=== PATIENT | male | born 1930 | race Caucasian/White ===

== ENCOUNTER 2018-01-24 11:20 | Emergency (ER) | payer SELFPAY ==
[~2018-01-24] VITALS: Ht 182.9 cm; Wt 106.8 kg
[2018-01-24 11:24] VITALS: Ht 182.9 cm; Wt 106.8 kg
[2018-01-24] MEDS ORDERED: LASIX20 MG PO (13:12)
[2018-01-24] MEDS ORDERED: Walker (13:13)
[2018-01-24 15:23] VITALS: BP 152/84
== END 2018-01-24 18:15 | disposition home or self-care (01) ==
LOC: D.ER 11:20
DX: M54.5 Low back pain (principal); R60.9 Edema, unspecified; R53.1 Weakness; W18.30XA Fall on same level, unspecified, initial encounter; Y93.89 Activity, other specified; Y92.019 Unspecified place in single-family (private) house as the place of occurrence of the external cause; F17.200 Nicotine dependence, unspecified, uncomplicated

== ENCOUNTER 2018-03-22 00:07 | Emergency (ER) | payer SELFPAY ==
[~2018-03-22] VITALS: Ht 182.9 cm; Wt 106.8 kg
[~2018-03-22 00:07] MED LIST: LASIX20 MG PO; Walker
[2018-03-22 00:09] VITALS: Ht 182.9 cm; Wt 106.8 kg
[2018-03-22 00:44] LABS: HEMATOCRIT 37.7 % (42.0-54.0); HEMOGLOBIN 12.8 g/dL (13.5-17.5); MCH 30.8 pg (26.0-34.0); MCV 90.6 fL (80.0-100.0); MEAN PLATELET VOLUME 9.2 fL (7.4-10.4); PLATELET COUNT 135 10x3/uL (130-400); RBC 4.16 10x6/uL (4.20-6.10); RDW 13.4 % (11.5-14.5); WBC 22.2 10x3/uL (4.8-10.8)
[2018-03-22 00:50] LABS: APTT 30.8 SECONDS (22.8-39.4); INR 1.56 (0.85-1.17); PROTIME 18.1 SECONDS (11.6-15.0)
[2018-03-22 00:51] LABS: ALKALINE PHOSPHATASE 73 U/L (46-116); ALT (SGPT) 33 U/L (10-68); BILIRUBIN - TOTAL 0.85 mg/dL (0.2-1.3); CALC OSMOLALITY 290 mosm/kg (275-300); CALCIUM 8.4 mg/dL (8.5-10.1); CARBON DIOXIDE 28.6 mmol/L (21.0-32.0); CHLORIDE - SERUM 103 mmol/L (98-107); CREATININE - SERUM 1.6 mg/dL (0.6-1.3); GLUCOSE 110 mg/dL (74-106); POTASSIUM - SERUM 4.1 mmol/L (3.5-5.1); PROTEIN - SERUM 7.3 g/dL (6.4-8.2); SODIUM 143 mmol/L (136-145); UREA NITROGEN 27 mg/dL (7-18); eGFR NON AFRICAN AMERICAN 44 mL/min (90-120)
[2018-03-22 01:09] LABS: CKMB 10.3 U/L (0.0-3.6); CREATINE KINASE 1528 UL (21-232); TROPONIN-I 0.044 ng/mL (0.000-0.060)
[2018-03-22 01:16] LABS: EOSINOPHILS 1 % (0-7); LYMPHOCYTES 4 % (15-50); MONOCYTES 3 % (2-11); NEUTROPHILS 88 % (40-80); PLATELET ESTIMATE NORMAL
[2018-03-22 02:16] LABS: APPEARANCE HAZY (CLEAR); COLOR YELLOW (YELLOW); NITRITE NEGATIVE (NEGATIVE); SPECIFIC GRAVITY 1.015 (1.005-1.020)
[2018-03-22 02:17] LABS: BACTERIA NONE SEEN /hpf (NONE SEEN); BILIRUBIN NEGATIVE (NEGATIVE); EPITHELIAL CELLS NSEEN /hpf (0-5); GLUCOSE NEGATIVE (NEGATIVE); KETONE NEGATIVE (NEGATIVE); PROTEIN TRACE mg/dL (NEGATIVE); UROBILINOGEN NORMAL (NORMAL); WHITE CELLS - URINE RARE /hpf (0-5)
[2018-03-22 05:30] VITALS: BP 128/70
== END 2018-03-22 05:30 | disposition short-term general hospital (02) ==
LOC: D.ER 00:07
PROVIDERS: Family Medicine
DX: R65.10 Systemic inflammatory response syndrome (SIRS) of non-infectious origin without acute organ dysfunction (principal); N17.9 Acute kidney failure, unspecified; L89.302 Pressure ulcer of unspecified buttock, stage 2; E86.0 Dehydration; I45.10 Unspecified right bundle-branch block; R00.0 Tachycardia, unspecified; R53.1 Weakness; R06.00 Dyspnea, unspecified

== ENCOUNTER 2018-07-02 21:08 | Emergency (ER) | payer OTHER ==
[~2018-07-02] VITALS: Ht 182.9 cm; Wt 90.9 kg
[2018-07-02 21:15] VITALS: Ht 182.9 cm; Wt 90.9 kg
[2018-07-02] MEDS ORDERED: OCUFLOX 0.3 % OP5 ML EACH EYE (21:56)
[2018-07-02 22:10] VITALS: BP 137/68
== END 2018-07-02 22:11 | disposition home or self-care (01) ==
LOC: D.ER 21:08
DX: H10.33 Unspecified acute conjunctivitis, bilateral (principal)

== ENCOUNTER 2019-01-31 16:39 | Emergency (ER) | payer OTHER ==
[~2019-01-31] VITALS: Ht 182.9 cm; Wt 86.4 kg
[~2019-01-31 16:39] MED LIST changes: +OCUFLOX 0.3 % OP5 ML EACH EYE
[2019-01-31 16:40] VITALS: Ht 182.9 cm; Wt 86.4 kg
[2019-01-31 16:56] LABS: BASOPHILS 0.3 % (0-2); EOSINOPHILS 1.9 % (0-7); HEMATOCRIT 40.5 % (42.0-54.0); HEMOGLOBIN 14.1 g/dL (13.5-17.5); IMMATURE GRANULOCYTES 0.2 % (0-5); LYMPHOCYTES 15.2 % (15-50); MCH 31.2 pg (26.0-34.0); MCHC 34.8 g/dL (31.0-37.0); MCV 89.6 fL (80.0-100.0); MEAN PLATELET VOLUME 9.8 fL (7.4-10.4); NEUTROPHILS 77.4 % (40-80); PLATELET COUNT 164 10x3/uL (130-400); RBC 4.52 10x6/uL (4.20-6.10); RDW 13.6 % (11.5-14.5); WBC 5.8 10x3/uL (4.8-10.8)
[2019-01-31 17:05] LABS: APTT 28.3 SECONDS (22.8-39.4); INR 1.16 (0.85-1.17); PROTIME 14.2 SECONDS (11.6-15.0)
[2019-01-31 17:14] LABS: ALBUMIN 3.6 g/dL (3.4-5.0); ALKALINE PHOSPHATASE 91 U/L (46-116); ALT (SGPT) 15 U/L (10-68); BILIRUBIN - TOTAL 0.87 mg/dL (0.2-1.3); CALC OSMOLALITY 291 mosm/kg (275-300); CALCIUM 8.7 mg/dL (8.5-10.1); CARBON DIOXIDE 29.7 mmol/L (21.0-32.0); CHLORIDE - SERUM 105 mmol/L (98-107); CREATININE - SERUM 1.1 mg/dL (0.6-1.3); GLUCOSE 129 mg/dL (74-106); POTASSIUM - SERUM 3.7 mmol/L (3.5-5.1); PROTEIN - SERUM 6.8 g/dL (6.4-8.2); SODIUM 144 mmol/L (136-145); UREA NITROGEN 20 mg/dL (7-18); eGFR NON AFRICAN AMERICAN 67 mL/min (90-120)
[2019-01-31 17:29] LABS: CKMB 2.2 U/L (0.0-3.6); CREATINE KINASE 55 UL (21-232); MAGNESIUM - SERUM 1.9 mg/dL (1.8-2.4)
[2019-01-31 17:35] LABS: TROPONIN-I 0.101 ng/mL (0.000-0.060)
[2019-01-31 22:51] LABS: APPEARANCE CLEAR (CLEAR); BILIRUBIN NEGATIVE (NEGATIVE); COLOR YELLOW (YELLOW); GLUCOSE NEGATIVE (NEGATIVE); KETONE NEGATIVE (NEGATIVE); NITRITE NEGATIVE (NEGATIVE); PROTEIN TRACE mg/dL (NEGATIVE); SPECIFIC GRAVITY 1.005 (1.005-1.020); UROBILINOGEN NORMAL (NORMAL)
[2019-02-01 00:30] VITALS: BP 174/74
== END 2019-02-01 00:56 | disposition other institution (70) ==
LOC: D.ER 16:39
PROVIDERS: Family Medicine
DX: R42 Dizziness and giddiness (principal); R74.8 Abnormal levels of other serum enzymes; R53.1 Weakness

== ENCOUNTER 2019-08-15 21:21 | Emergency (ER) | payer OTHER ==
[2019-01-31 16:40] VITALS: Ht 182.9 cm; Wt 90.9 kg
[~2019-08-15] VITALS: Ht 182.9 cm; Wt 90.9 kg
[2019-08-15] MEDS ORDERED: K-TAB10 MEQ PO (21:27)
[2019-08-15] MEDS ORDERED: LASIX40 MG (21:27)
[2019-08-15] MEDS ORDERED: TERAZOSIN HCL2 MG (21:27)
[2019-08-15] MEDS ORDERED: ELIQUIS5 MG PO (21:29)
[2019-08-15 23:34] VITALS: BP 119/65
== END 2019-08-15 23:36 | disposition home or self-care (01) ==
LOC: D.ER 21:21
DX: S00.83XA Contusion of other part of head, initial encounter (principal); Z79.01 Long term (current) use of anticoagulants; W19.XXXA Unspecified fall, initial encounter; Y93.9 Activity, unspecified; Y92.9 Unspecified place or not applicable

== ENCOUNTER 2019-12-01 00:01 | Inpatient (IN) | payer OTHER ==
[2019-12-01] VITALS (9 sets, daily range): BP systolic 103–127; BP diastolic 51–867
[~2019-12-01] VITALS: Ht 182.9 cm; Wt 111.5 kg
[~2019-12-01 00:01] MED LIST changes: +ELIQUIS5 MG PO; +K-TAB10 MEQ PO; +LASIX40 MG; +TERAZOSIN HCL2 MG
--- NOTE | 2019-12-01 00:01 | NUR ---
PT WEARING SOILED PULL UP. INCONTINENT EPISODE OF URINE, PERINEAL CARE AND LINEN CHANGE PROVIDED.
--- NOTE | 2019-12-01 00:20 | NUR ---
PHLEBOTAMIST AT BEDSIDE, BED CULTURES X2 DONE.
[2019-12-01 00:27] LABS: BILIRUBIN NEGATIVE (NEGATIVE); GLUCOSE NEGATIVE (NEGATIVE); KETONE NEGATIVE (NEGATIVE); NITRITE NEGATIVE (NEGATIVE); UROBILINOGEN NORMAL (NORMAL)
[2019-12-01 00:37] LABS: BASOPHILS 0.2 % (0-2); EOSINOPHILS 0.5 % (0-7); HEMATOCRIT 39.9 % (42.0-54.0); HEMOGLOBIN 13.4 g/dL (13.5-17.5); IMMATURE GRANULOCYTES 0.2 % (0-5); LYMPHOCYTES 2.1 % (15-50); MCH 29.8 pg (26.0-34.0); MCHC 33.6 g/dL (31.0-37.0); MCV 88.7 fL (80.0-100.0); PLATELET COUNT 133 10x3/uL (130-400); RDW 13.5 % (11.5-14.5); WBC 9.2 10x3/uL (4.8-10.8)
[2019-12-01 00:42] LABS: APTT 28.3 SECONDS (22.8-39.4); INR 1.17 (0.85-1.17); PROTIME 14.8 SECONDS (11.6-15.0)
[2019-12-01 00:47] LABS: ANION GAP 9.9 mmol/L (8-16); CALCIUM 8.3 mg/dL (8.5-10.1); CARBON DIOXIDE 26.9 mmol/L (21.0-32.0); CREATININE - SERUM 1.9 mg/dL (0.6-1.3); POTASSIUM - SERUM 3.8 mmol/L (3.5-5.1)
[2019-12-01 01:02] LABS: ALBUMIN 3.3 g/dL (3.4-5.0); BILIRUBIN - TOTAL 0.52 mg/dL (0.2-1.3); MAGNESIUM - SERUM 1.9 mg/dL (1.8-2.4); PROTEIN - SERUM 6.8 g/dL (6.4-8.2); THYROID STIMULATING HORMONE 0.81 uIU/mL (0.36-3.74); TROPONIN-I 0.027 ng/mL (0.000-0.060)
--- NOTE | 2019-12-01 03:50 | NUR ---
RADHA AND ASSIST X4 TO MOVE FROM STRETCHER TO BED LOW AND LOCKED PT IS CONFUSED CALL LIGHT GIVEN PT REQUEST A DRINK AN WATER PROVIDED
--- NOTE | 2019-12-01 12:36 | NUR ---
REPORTED NEW LACTIC ACID LEVEL OF 2.[address] CRUZ. REDRAW SCHEDULED FOR FOUR HOURS FROM NOW
--- NOTE | 2019-12-01 13:01 | NUR ---
PATIENT IS LAYING HALF OF THE BED. PATIENT IS A FALL RISK, BED ALARM SET.
[2019-12-01 17:02] LABS: % SATURATION 9 % (15-55); IRON 21 ug/dl (35-150); TOTAL IRON BIND CAPACITY 215 ug/dl (260-445); UNSAT IRON BIND CAPACITY 194 ug/dl (150-375)
--- NOTE | 2019-12-01 19:49 | NUR ---
PT SITTING UP IN CHAIR NO SIGNS OR SYMPTOMS OF DISTRESS NOTED. RESPIRATIONS EVENN AND UNLABORED. PT COMPLAIN OF BEING COLD BUT IS NOT READY TO GO TO BED YET. WARM BLANKET PROVIDED. CALL LIGHT AND OTHER PERSONAL ITEMS WITH IN REACH. WILL CONTINUE TO MONITOR
[2019-12-02] VITALS: BP 122/65
--- NOTE | 2019-12-02 01:25 | NUR ---
PT LYING IN BED RESTING QUIETLY WITH EYES CLOSED. EASILY AWAKEN WITH VOICE STIMULATION. ASSIST PT TO RESTROOM AND BACK TO BED. PT TOLERATED WELL. DENTURE CUP PROVIDED PER PT REQUEST. PT HAS NO COMPLAINTS AF PAIN AT THIS TIME. BED ALARM ON AND ACTIVE. FALL PRECAUTIONS IN PLACE. CALL LIGHT AND OTHER PERSONAL ITEMS WITH IN REACH. PT ENCOURAGED TO CALL FOR HELP WHEN GETTING IN AND OUT OF BED AND NEEDED. BED IS IN ITS LOWEST POSITION. SIDERAILS x2. WILL CONTINUE TO MONITOR.
--- NOTE | 2019-12-02 03:57 | NUR ---
I have reviewed this patient and I concur with the Shift Assessment completed by the Licensed Practical Nurse today this shift.
[2019-12-02 04:00] VITALS: BP 137/72
--- NOTE | 2019-12-02 07:24 | NUR ---
PT RESTING, RR EVEN AND UNLABORED ON 2L NC. NO DISTRESS NOTED. CALL LIGHT WITHIN REACH. BED IN LOWEST POSITION. WILL CONTINUE TO MONIOTR.
--- NOTE | 2019-12-02 07:32 | NUR ---
TECH CAME OUT OF ROOM AND STATED PT STILL HAD A TOURNIQUET ON RIGHT WRIST FROM LABS BEING DRAW. ISSUE ADDRESSED WITH LAB. RIGHT HAND COLOR IS WITHIN NORMAL LIMITS. PULSE 2+ AND EQUAL. CAP REFILL LESS THAN 3 SECONDS. PT STATES HE IS OKAY
[2019-12-02 07:54] LABS: BASOPHILS 0.3 % (0-2); EOSINOPHILS 4.5 % (0-7); HEMATOCRIT 37.1 % (42.0-54.0); HEMOGLOBIN 11.9 g/dL (13.5-17.5); LYMPHOCYTES 8.4 % (15-50); MCH 29.2 pg (26.0-34.0); MCHC 32.1 g/dL (31.0-37.0); MEAN PLATELET VOLUME 9.5 fL (7.4-10.4); MONOCYTES 7.7 % (2-11); NEUTROPHILS 79.1 % (40-80); PLATELET COUNT 108 10x3/uL (130-400); RBC 4.08 10x6/uL (4.20-6.10); WBC 6.9 10x3/uL (4.8-10.8)
[2019-12-02 08:02] LABS: MCV 90.9 fL (80.0-100.0)
[2019-12-02 08:15] LABS: ALBUMIN 2.7 g/dL (3.4-5.0); ANION GAP 9.8 mmol/L (8-16); BILIRUBIN - TOTAL 0.47 mg/dL (0.2-1.3); CALCIUM 7.3 mg/dL (8.5-10.1); MAGNESIUM - SERUM 1.8 mg/dL (1.8-2.4); POTASSIUM - SERUM 3.8 mmol/L (3.5-5.1); PROTEIN - SERUM 5.6 g/dL (6.4-8.2)
[2019-12-02 08:17] LABS: CREATININE - SERUM 1.4 mg/dL (0.6-1.3)
[2019-12-02 08:31] VITALS: BP 157/79
--- NOTE | 2019-12-02 10:44 | NUR ---
I have reviewed this patient and I concur with the Shift Assessment completed by the Licensed Practical Nurse today this shift.
[2019-12-02 12:24] VITALS: BP 157/75
--- NOTE | 2019-12-02 17:20 | NUR ---
Rehab Note- Acute Inpatient Rehab prescreen order received. We currently have no beds avaliable at this time and the patient is also noted only to have VA insurance at this time. Thank you for this referral! Yoselyn Connors RN Clinical Liaison, [facility] Rehab
--- NOTE | 2019-12-02 19:45 | NUR ---
PT AAO X 3, UP IN CHAIR, RESP EVEN AND UNLABORED. NO DISTRESS NOTED, CL IN REACH.
[2019-12-02 20:00] VITALS: BP 182/90
[2019-12-03] VITALS: BP 174/85
[2019-12-03 04:00] VITALS: BP 153/66
[2019-12-03 05:57] LABS: BASOPHILS 0.5 % (0-2); EOSINOPHILS 4.9 % (0-7); HEMATOCRIT 35.9 % (42.0-54.0); HEMOGLOBIN 11.8 g/dL (13.5-17.5); IMMATURE GRANULOCYTES 0.2 % (0-5); MCH 29.7 pg (26.0-34.0); MCHC 32.9 g/dL (31.0-37.0); MCV 90.4 fL (80.0-100.0); MEAN PLATELET VOLUME 9.8 fL (7.4-10.4); MONOCYTES 10.8 % (2-11); NEUTROPHILS 72.6 % (40-80); PLATELET COUNT 118 10x3/uL (130-400); RBC 3.97 10x6/uL (4.20-6.10); RDW 13.7 % (11.5-14.5); WBC 6.4 10x3/uL (4.8-10.8)
[2019-12-03 06:15] LABS: ALBUMIN 2.6 g/dL (3.4-5.0); BILIRUBIN - TOTAL 0.39 mg/dL (0.2-1.3); CALCIUM 7.7 mg/dL (8.5-10.1); CARBON DIOXIDE 25.7 mmol/L (21.0-32.0); CREATININE - SERUM 1.5 mg/dL (0.6-1.3); MAGNESIUM - SERUM 1.7 mg/dL (1.8-2.4); POTASSIUM - SERUM 3.7 mmol/L (3.5-5.1); PROTEIN - SERUM 5.9 g/dL (6.4-8.2)
--- NOTE | 2019-12-03 06:25 | NUR ---
OT NOTE: (DOS 12/02/2019) PT COMPLETED SIT TO STAND WITH MOD/MAX A . PT COMPLETED SITTING BALANCE WITH MOD A. PT COMPLETED HAND HYGIENE WITH SETUP. [phone] THANK YOU,AMANDA ROMERO
[2019-12-03 09:26] VITALS: BP 152/77
--- NOTE | 2019-12-03 11:30 | NUR ---
PT SITTING UP IN BED, DENIES PAIN. PIV IN RIGHT FOREARM, PATENT, NON TENDER, NO REDNESS. PT ON 2L NC. PERFORMED ASSESSMENT: SEE SHIFT ASSESSMENT. PT HAS REDDENED, BLANCHABLE AREA ON COCCYX, APPLIED BARRIER CREAM. PT IS ON FALL PRECAUTIONS AND VERBALIZED UNDERSTANDING OF CL USE. PT WALKED WITH PHYSICAL THERAPY VIA WALKER AND TOLERATED WELL. HIS LOWER LEGS HAVE TRACE EDEMA AND ARE DRY, APPLIED LOTION. PT DENIES FURTHER NEEDS. BED LOW, RAILS X2. CL IN REACH. WILL CONTINUE TO MONITOR.
--- NOTE | 2019-12-03 12:42 | NUR ---
OT NOTE: PT PERFORMED VERY WELL TODAY. MUCH MORE CLEAR COGNITIVELY THAN YESTERDAY. ABLE TO AMB WITH CGA, WALKER, EQUIP MGMT,AND GAIT BELT X 250 FT.. CUES REQUIRED FOR STAYING INSIDE WALKER..REQUIRED 1 REST BREAK. IN ROOM AMB WITH CGA; TOILET TRANSFERS WITH MIN/CGA; SIMPLE GROOMING TASKS WITH SET UP. AUGUST MARSH, OTR/L [phone]
[2019-12-03 14:09] VITALS: BP 149/78
[2019-12-03 17:50] VITALS: BP 142/78
--- NOTE | 2019-12-03 19:30 | NUR ---
PT SETTING UP IN CHAIR, AAO X 2, CONFUSED AT TIMES. PT RESP EVEN AND UNLABORED NO DISTRESS NOTED, CL IN REACH.
[2019-12-03 20:00] VITALS: BP 180/69
[2019-12-04] VITALS: BP 170/78
[2019-12-04 04:00] VITALS: BP 171/88
[2019-12-04 05:21] LABS: BASOPHILS 0.2 % (0-2); EOSINOPHILS 4.4 % (0-7); HEMATOCRIT 36.5 % (42.0-54.0); IMMATURE GRANULOCYTES 0.3 % (0-5); LYMPHOCYTES 10.2 % (15-50); MCH 29.6 pg (26.0-34.0); MCHC 32.9 g/dL (31.0-37.0); MCV 90.1 fL (80.0-100.0); MEAN PLATELET VOLUME 9.8 fL (7.4-10.4); MONOCYTES 9.7 % (2-11); NEUTROPHILS 75.2 % (40-80); PLATELET COUNT 122 10x3/uL (130-400); RBC 4.05 10x6/uL (4.20-6.10); RDW 13.5 % (11.5-14.5); WBC 6.2 10x3/uL (4.8-10.8)
[2019-12-04 05:50] LABS: ALBUMIN 2.7 g/dL (3.4-5.0); ANION GAP 7.8 mmol/L (8-16); BILIRUBIN - TOTAL 0.5 mg/dL (0.2-1.3); CALCIUM 7.9 mg/dL (8.5-10.1); CARBON DIOXIDE 27.1 mmol/L (21.0-32.0); CREATININE - SERUM 1.3 mg/dL (0.6-1.3); MAGNESIUM - SERUM 1.9 mg/dL (1.8-2.4); POTASSIUM - SERUM 3.9 mmol/L (3.5-5.1); PROTEIN - SERUM 6.1 g/dL (6.4-8.2)
--- NOTE | 2019-12-04 06:55 | NUR ---
A&O, SITTING UP ON THE SIDE OF THE BED. NO C/O PAIN. NO S/S OF ACUTE DISTRESS NOTED. ON 2L O2, NC. ON TELEMETRY 78 SR WITH BBB. IV TO RIGHT FOREARM, SL. SITE PATENT WITHOUT REDNESS OR SWELLING. BLE EDEMA, GENERALIZED. DENIES ANY NEEDS AT THIS TIME. CALL LIGHT IN REACH. WILL CONTINUE TO MONITOR.
--- NOTE | 2019-12-04 07:28 | NUR ---
I have reviewed this patient and I concur with the Shift Assessment completed by the Licensed Practical Nurse today this shift.
[2019-12-04 09:00] VITALS: BP 140/72
[2019-12-04 11:00] VITALS: BP 168/84
[2019-12-04 15:00] VITALS: BP 153/79
--- NOTE | 2019-12-04 17:39 | NUR ---
IV TO RIGHT FOREARM INFILTRATED. DC IV CATHETER TIP INTACT. RESITED IV TO RIGHT AC, X1 STICK WITH BLOOD RETURN.
--- NOTE | 2019-12-04 17:44 | NUR ---
I have reviewed this patient and I concur with the Shift Assessment completed by the Licensed Practical Nurse today this shift.
--- NOTE | 2019-12-04 18:09 | NUR ---
RESTING IN BED WITH EYES CLOSED. RESPIRATIONS EVEN AND UNLABORED. NO S/S OF ACUTE DISTRESS NOTED. CALL LIGHT IN REACH. WILL CONTINUE TO MONITOR.
--- NOTE | 2019-12-04 19:17 | NUR ---
RECIEVED UP AMBULATING AROUND THE BED. ALERT AND ORIENTED X4. C/O WET BED. COMPLETE BED CHANGE DONE. STATES HE IS UNAWARE WHEN HE NEEDS TO URINATE. ALSO SAID HE DOES'NT WANT TO USE THE URINAL. DOES NOT WEAR O2. IV TO RT AC SL. TELEMETRY IN PLACE. EDEMA TO BLE. DENIES ANY OTHER NEEDS OR PAIN.
[2019-12-04 20:00] VITALS: BP 168/75
[2019-12-05] VITALS: BP 172/85
[2019-12-05 04:00] VITALS: BP 171/78
[2019-12-05 05:20] LABS: BASOPHILS 0.5 % (0-2); EOSINOPHILS 4.8 % (0-7); HEMATOCRIT 35.7 % (42.0-54.0); HEMOGLOBIN 11.7 g/dL (13.5-17.5); IMMATURE GRANULOCYTES 0.2 % (0-5); LYMPHOCYTES 13.7 % (15-50); MCH 29.2 pg (26.0-34.0); MCHC 32.8 g/dL (31.0-37.0); MEAN PLATELET VOLUME 9.9 fL (7.4-10.4); MONOCYTES 11.4 % (2-11); NEUTROPHILS 69.4 % (40-80); PLATELET COUNT 128 10x3/uL (130-400); RBC 4.01 10x6/uL (4.20-6.10); RDW 13.4 % (11.5-14.5)
[2019-12-05 05:59] LABS: ALBUMIN 2.9 g/dL (3.4-5.0); ANION GAP 8.7 mmol/L (8-16); BILIRUBIN - TOTAL 0.75 mg/dL (0.2-1.3); CARBON DIOXIDE 26.7 mmol/L (21.0-32.0); CREATININE - SERUM 1.3 mg/dL (0.6-1.3); MAGNESIUM - SERUM 1.8 mg/dL (1.8-2.4); POTASSIUM - SERUM 3.4 mmol/L (3.5-5.1); PROTEIN - SERUM 6.3 g/dL (6.4-8.2)
[2019-12-05 08:31] VITALS: BP 163/69
--- NOTE | 2019-12-05 09:10 | NUR ---
PT AWAKE AND ORIENTED SITTING UP ON SIDE OF THE BED EATING BREAKFAST. TOOK PILLS WITHOUT COMPLICATIONS. NO COMPLAINTS OR CONCERNS AT THIS TIME. CL INR EACH,SR X2.
--- NOTE | 2019-12-05 10:23 | NUR ---
I have reviewed this patient and I concur with the Shift Assessment completed by the Licensed Practical Nurse today this shift.
[2019-12-05 13:20] VITALS: BP 151/70
--- NOTE | 2019-12-05 13:36 | NUR ---
PT AWAKE AND ORIENTED SITTING ON SIDE OF THE BED. CL IN REACH,SRX2 NO COMPLAINTS OR CONCERNS AT THIS TIME ALL QUESTIONS ANSWERED OT THE BEST OF MY ABILITY. NO FAMILY AT BEDSID.E
[2019-12-05 18:29] VITALS: BP 167/75
--- NOTE | 2019-12-05 19:27 | NUR ---
RECIEVED UP AMBULATING AROUND THE ROOM WITH A CANE. ALERT AND ORIENTED X4. UP AD JAME WITH CANE. WILL NOT USE CALL LIGHT FOR ASSIST. IV TO RT AC SL. TELEMETRY IN PLACE. INCONT OF URINE AND WEARS BRIEFS. CHANGES HIS OWN BRIEFS. DENIES ANY NEEDS AT THIS TIME.
[2019-12-06 05:00] VITALS: BP 169/89
[2019-12-06 05:22] LABS: BASOPHILS 0.3 % (0-2); EOSINOPHILS 5.7 % (0-7); HEMATOCRIT 36.3 % (42.0-54.0); HEMOGLOBIN 12.1 g/dL (13.5-17.5); IMMATURE GRANULOCYTES 0.5 % (0-5); LYMPHOCYTES 14.9 % (15-50); MCH 29.5 pg (26.0-34.0); MCHC 33.3 g/dL (31.0-37.0); MCV 88.5 fL (80.0-100.0); MEAN PLATELET VOLUME 9.9 fL (7.4-10.4); MONOCYTES 10.8 % (2-11); NEUTROPHILS 67.8 % (40-80); RDW 13.5 % (11.5-14.5); WBC 6.4 10x3/uL (4.8-10.8)
[2019-12-06 05:29] LABS: PLATELET COUNT 156 10x3/uL (130-400)
[2019-12-06 05:35] LABS: ANION GAP 8.2 mmol/L (8-16); BILIRUBIN - TOTAL 0.73 mg/dL (0.2-1.3); CALCIUM 8.1 mg/dL (8.5-10.1); CARBON DIOXIDE 27.4 mmol/L (21.0-32.0); CREATININE - SERUM 1.3 mg/dL (0.6-1.3); MAGNESIUM - SERUM 1.7 mg/dL (1.8-2.4); POTASSIUM - SERUM 3.6 mmol/L (3.5-5.1); PROTEIN - SERUM 6.5 g/dL (6.4-8.2)
[2019-12-06 08:30] VITALS: BP 168/87
[2019-12-06 12:00] VITALS: BP 126/72; BP 155/65; BP 157/61
--- NOTE | 2019-12-06 13:54 | MORECARE ---
CASE MANAGEMENT DISCHARGE SUMMARY PATIENT: NIKOLAI ROGERS UNIT: [id number] ADM DATE: 12/01/19 AGE: 89 : [birth year] SEX: M ROOM/BED: D.2107 AUTHOR: GRECIA,DOC PHYSICIAN: REFERRING PHYSICIAN: JAMILA WALKER MD DATE OF SERVICE: 12/06/19 Discharge Plan Patient Name: NIKOLAI ROGERS Facility: [facility]:[place] : 1930 Planned Disposition: Inpatient Rehab Anticipated Discharge Date: Discharge Date: Expected LOS: 0 Initial Reviewer: [email or web address] Initial Review Date: 12/01/2019 Generated: 12/06/19 2:53 pm DCP- Discharge Planning Updated by [email or web address]: Triny Borrero on 12/06/19 12:[address] CM contacted the [facility] regarding patient's request to transfer there for Rehab. CM spoke with [facility], with the [facility], provided required information. Per Linsey, the [place] requires a patient to go into a 14 day quarantine, be tested for COVID at the [place], prior to going into rehab. CM provided MD contact number for P2P. Patient has been made aware of this and is in agreement. DCP- Discharge Planning Updated by [id number]: Triny Borrero on 12/06/19 11:[address] DC Plan: Rehab vs home. Patient chan not want to use his Medicare benefits, and he agrees to [facility] re[facility] if he can be accepted. CM will contact the [place]. CM notified Roseann, with [facility] of same. CM met with patient to discuss initial discharge planning. Patient is in agreement to proceed with the assessment. Patient reports that he lives at home independently with his S-I-L, Irvin Segundo, #[phone]. Patient is alert/oriented. Stairs/steps:0. PCP: YASMIN CARRASCO. Pharmacy: [place].Patient states he has been able to obtain all of her prescribed medications. HHS: No. DME: Walker, Shower chair. Patient gives permission to speak with family members. 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 CM discussed the availability of HH, Rehab, SNF, OP Therapy, DME services. Patient agrees to Rehab, will attempt to find Rehab facility contracted with [facility]. Patient denies hospitalization within the past 30 days. Patient denies the use of community resources LEASE OUT WORKER. Transportation at time of discharge: Patient's son-in-law. Patient declines SNF stay, only wants Rehab inpatient. DCP- Discharge Planning Updated by [id number]: Triny Borrero on 12/03/19 4:[address] CM contacted patient's son Irvin Segundo @[phone], to verify if he/patient wants to stay at [facility] vs use of [facility]. Patient's son request that patient stay here at [facility] for treatment and rehab. Per Caprice, with [facility], they are unable to transfer until Friday due to the December 03 holiday. CB on Friday if needed. DCPIA - Discharge Planning Initial Assessment Updated by [id number]: Triny Borrero on 12/06/19 1:48 pm * Is the patient Alert and Oriented? Yes * How many steps to enter\exit or inside your home? * [facility]CP [facility] * [facility]acy [place] * Preadmission Environment Home with Family * ADLs Independent * Equipment Rolling Walker Shower Chair * Other Equipment NA * List name and contact numbers for known caregivers / representatives who currently or will assist patient after discharge: Irvin Segundo [phone] * Verbal permission to speak to the caregivers and representatives has been obtained from the patient. Yes * Community resources currently utilized None * Please name any agencies selected above. [facility] * Additional services required to return to the preadmission environment? Yes * Can the patient safely return to the preadmission environment? No * Has this patient been hospitalized within the prior 30 days at any hospital? No Patient Name: NIKOLAI ROGERS Page [phone] at 1354 All edits/amendments must be made on the electronic document DICTATION DATE: 12/06/19 1354 LIBRARY MANAGER: BRIDGETTE 12/06/19 1354 RPT#: [id number] DC DATE: STATUS: ADM IN [facility] [address] [place] [address] END OF REPORT
--- NOTE | 2019-12-06 14:17 | NUR ---
OT NOTE: PT COMPLETED SIT TO STAND WITH MIN A. PT COMPLETED ADL MOB WITH CGA. PT COMPLETED HAND HYGIENE WHILE STANDING AT SINK WITH SBA. [phone] MICHAEL ROJAS COTA
--- NOTE | 2019-12-06 14:24 | NUR ---
OT NOTE: PT PERFORMED WELL TODAY; ABLE TO AMB IN ROOM WITH RW AND SBA.. CONTINUED VERBAL CUES TO STAY UP INSIDE THE WALKER, HOWEVER, PT CONTINUES TO WALK IN FORWARD FLEXED POSITION, DESPITE CONTINUAL CUES. TOILETING WITH SBA; STANDING AT SINK TO PERFORM GROOMING TASKS WITH SBA; ABLE TO AMB GREATER THAN 200 FT WITH RW AND 1 REST BREAK (TO IMPROVE FUNCTIONAL ENDURANCE)..PT ABLE TO CAROLINE GOWN WITH SET UP, BUT REQUIRES ASSIST WITH LE DRESSING AUGUST MARSH, OTR/L [phone]
[2019-12-06 16:50] VITALS: BP 155/65
--- NOTE | 2019-12-06 18:27 | NUR ---
I have reviewed this patient and I concur with the Shift Assessment completed by the Licensed Practical Nurse today this shift.
--- NOTE | 2019-12-06 19:05 | NUR ---
REPORT RECEIVED, WILL CONTINUE POC. PATIENT IS AAXO4, SITTING UP IN CHAIR. PIV TO RT AC, PATENT, INFUSING IRON. NO S/S OF DISTRESS OBSERVED, RR EVEN AND UNLABORED ON ROOM AIR. PATIENT DENIES NEEDS AT THIS TIME. CL IN REACH, BED LOCKED AND LOWERED. WILL CTM.
[2019-12-06 20:00] VITALS: BP 167/75
[2019-12-07] VITALS: BP 145/82
[2019-12-07 04:00] VITALS: BP 157/79
[2019-12-07 04:40] LABS: BASOPHILS 0.6 % (0-2); EOSINOPHILS 6.2 % (0-7); HEMATOCRIT 38.1 % (42.0-54.0); HEMOGLOBIN 12.5 g/dL (13.5-17.5); IMMATURE GRANULOCYTES 0.3 % (0-5); LYMPHOCYTES 18.5 % (15-50); MCH 29.3 pg (26.0-34.0); MCHC 32.8 g/dL (31.0-37.0); MCV 89.4 fL (80.0-100.0); MEAN PLATELET VOLUME 9.9 fL (7.4-10.4); MONOCYTES 11.4 % (2-11); PLATELET COUNT 176 10x3/uL (130-400); RBC 4.26 10x6/uL (4.20-6.10); RDW 13.6 % (11.5-14.5); WBC 6.6 10x3/uL (4.8-10.8)
[2019-12-07 05:05] LABS: ALBUMIN 3.1 g/dL (3.4-5.0); ANION GAP 10.8 mmol/L (8-16); BILIRUBIN - TOTAL 0.65 mg/dL (0.2-1.3); CALCIUM 8.1 mg/dL (8.5-10.1); CREATININE - SERUM 1.5 mg/dL (0.6-1.3); MAGNESIUM - SERUM 1.8 mg/dL (1.8-2.4); POTASSIUM - SERUM 3.8 mmol/L (3.5-5.1); PROTEIN - SERUM 6.8 g/dL (6.4-8.2)
--- NOTE | 2019-12-07 06:19 | NUR ---
I have reviewed this patient and I concur with the Shift Assessment completed by the Licensed Practical Nurse today this shift.
[2019-12-07 09:00] VITALS: BP 164/79
--- NOTE | 2019-12-07 09:11 | MORECARE ---
CASE MANAGEMENT DISCHARGE SUMMARY PATIENT: NIKOLAI ROGERS UNIT: [id number] ADM DATE: 12/01/19 AGE: 89 : [birth year] SEX: M ROOM/BED: D.210 AUTHOR: GRECIA,DOC PHYSICIAN: REFERRING PHYSICIAN: JAMILA WALKER MD DATE OF SERVICE: 12/07/19 Discharge Plan Patient Name: NIKOLAI ROGERS Facility: [facility]:[place] : 1930 Planned Disposition: Inpatient Rehab Anticipated Discharge Date: Discharge Date: Expected LOS: 0 Initial Reviewer: [email or web address] Initial Review Date: 12/01/2019 Generated: 12/07/19 10:11 am DCP- Discharge Planning Updated by [id number]: Triny Borrero on 12/06/19 12:[address] CM contacted the [facility] regarding patient's request to transfer there for Rehab. CM spoke with [facility], with the [facility], provided required information. Per Linsey, the [place] requires a patient to go into a 14 day quarantine, be tested for COVID at the [place], prior to going into rehab. CM provided MD contact number for P2P. Patient has been made aware of this and is in agreement. DCP- Discharge Planning Updated by [id number]: Triny Borrero on 12/06/19 11:[address] DC Plan: Rehab vs home. Patient chan not want to use his Medicare benefits, and he agrees to [facility] re[facility] if he can be accepted. CM will contact the [place]. CM notified Roseann, with [facility] of same. CM met with patient to discuss initial discharge planning. Patient is in agreement to proceed with the assessment. Patient reports that he lives at home independently with his S-I-L, Irvin Segundo, #[phone]. Patient is alert/oriented. Stairs/steps:0. PCP: YASMIN CARRASCO. Pharmacy: [place].Patient states he has been able to obtain all of her prescribed medications. HHS: No. DME: Walker, Shower chair. Patient gives permission to speak with family members. 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 CM discussed the availability of HH, Rehab, SNF, OP Therapy, DME services. Patient agrees to Rehab, will attempt to find Rehab facility contracted with [facility]. Patient denies hospitalization within the past 30 days. Patient denies the use of community resources BREAD RACKER. Transportation at time of discharge: Patient's son-in-law. Patient declines SNF stay, only wants Rehab inpatient. DCP- Discharge Planning Updated by [id number]: Triny Borrero on 12/03/19 4:[address] CM contacted patient's son Irvin Segundo @[phone], to verify if he/patient wants to stay at [facility] vs use of [facility]. Patient's son request that patient stay here at [facility] for treatment and rehab. Per Caprice, with [facility], they are unable to transfer until Friday due to the December 03 holiday. CB on Friday if needed. DCPIA - Discharge Planning Initial Assessment Updated by [id number]: Triny Borrero on 12/06/19 1:48 pm * Is the patient Alert and Oriented? Yes * How many steps to enter\exit or inside your home? * [facility] * [facility] * Preadmission Environment Home with Family * ADLs Independent * Equipment Rolling Walker Shower Chair * Other Equipment NA * List name and contact numbers for known caregivers / representatives who currently or will assist patient after discharge: Irvin Segundo [phone] * Verbal permission to speak to the caregivers and representatives has been obtained from the patient. Yes * Community resources currently utilized None * Please name any agencies selected above. [facility] * Additional services required to return to the preadmission environment? Yes * Can the patient safely return to the preadmission environment? No * Has this patient been hospitalized within the prior 30 days at any hospital? No Last DP export: 12/06/19 12:54 pm Patient Name: NIKOLAI ROGERS Page [phone] at 0911 All edits/amendments must be made on the electronic document DICTATION DATE: 12/07/19910 WASHROOM OPERATOR: BRIDGETTE 12/07/19910 RPT#: [id number] DC DATE: STATUS: ADM IN [facility] [address] [place] [address] END OF REPORT
[2019-12-07 11:35] VITALS: Ht 182.9 cm; Wt 111.5 kg
[2019-12-07 14:51] VITALS: BP 141/99
--- NOTE | 2019-12-07 16:02 | MORECARE ---
CASE MANAGEMENT DISCHARGE SUMMARY PATIENT: NIKOLAI ROGERS UNIT: [id number] ADM DATE: 12/01/19 AGE: 89 : [birth year] SEX: M ROOM/BED: D.2101 AUTHOR: GRECIA,DOC PHYSICIAN: REFERRING PHYSICIAN: JAMILA WALKER MD DATE OF SERVICE: 12/07/19 Discharge Plan Patient Name: NIKOLAI ROGERS Facility: [facility]:[place] : 1930 Planned Disposition: Inpatient Rehab Anticipated Discharge Date: Discharge Date: Expected LOS: 0 Initial Reviewer: [email or web address] Initial Review Date: 12/01/2019 Generated: 12/07/19 5:02 pm Comments DCP- Discharge Planning Updated by [id number]: Triny Borrero on 12/07/19 3:[address] 1542: CM left a VM with Rebekah Banks to inquire if the [facility] will contract with [facility] for this patient. Provided my phone number and await CB. Contacted guillermina Arguello SENIOR TAX SPECIALIST, with [facility] regarding transfer. Per Rebekah, the [facility] is not accepting patients to rehab at this time. States she cannot see where patient might need Rehab from her notes. CM faxed required information to [phone], for the patient's chart. DCP- Discharge Planning Updated by [id number]: Triny Borrero on 12/06/19 12:[address] CM contacted the [facility] regarding patient's request to transfer there for Rehab. TOR spoke with Linsey, with the [facility], provided required information. Per Linsey, the [facility] requires a patient to go into a 14 day quarantine, be tested for [facility] at the [facility], prior to going into rehab. CM provided MD contact number for P2P. Patient has been made aware of this and is in agreement. DCP- Discharge Planning Updated by [id number]: Triny Borrero on 12/06/19 11:[address] DC Plan: Rehab vs home. Patient chan not want to use his Medicare benefits, and he agrees to VA rehab if he can be accepted. CM will contact the [facility]. CM notified Roseann, with [facility] of same. CM met with patient to discuss initial discharge planning. Patient is in agreement to proceed with the assessment. Patient reports that he lives at home independently with his S-I-L, Irvin Segundo, #[phone]. Patient is alert/oriented. Stairs/steps:0. PCP: YASMIN CARRASCO. Pharmacy: [place].Patient states he has been able to obtain all of her prescribed medications. HHS: No. DME: Walker, Shower chair. Patient gives permission to speak with family members. 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 CM discussed the availability of HH, Rehab, SNF, OP Therapy, DME services. Patient agrees to Rehab, will attempt to find Rehab facility contracted with [facility]. Patient denies hospitalization within the past 30 days. Patient denies the use of community resources SHOOTER HELPER. Transportation at time of discharge: Patient's son-in-law. Patient declines SNF stay, only wants Rehab inpatient. DCP- Discharge Planning Updated by [email or web address]: Tirny Blackmonlroy on 12/03/19 4:[address] CM contacted patient's son Irvin Segundo @[phone], to verify if he/patient wants to stay at [facility] vs use of [facility]. Patient's son request that patient stay here at [facility] for treatment and rehab. Per Caprice, with [facility], they are unable to transfer until Friday due to the December 03 holiday. CB on Friday if needed. DCPIA - Discharge Planning Initial Assessment Updated by [id number]: Triny Adair on 12/06/19 1:48 pm * Is the patient Alert and Oriented? Yes * How many steps to enter\exit or inside your home? * PCP [facility]ARR[facility] * [facility] * Preadmission Environment Home with Family * ADLs Independent * Equipment Rolling Walker Shower Chair * Other Equipment NA * List name and contact numbers for known caregivers / representatives who currently or will assist patient after discharge: Irvin Segundo [phone] * Verbal permission to speak to the caregivers and representatives has been obtained from the patient. Yes * Community resources currently utilized None * Please name any agencies selected above. [facility] * Additional services required to return to the preadmission environment? Yes * Can the patient safely return to the preadmission environment? No * Has this patient been hospitalized within the prior 30 days at any hospital? No Last DP export: 12/07/19 8:11 am Patient Name: NIKOLAI ROGERS Page [phone] at 1602 All edits/amendments must be made on the electronic document DICTATION DATE: 12/07/191601 SEAM FINISHER: BRIDGETTE 12/07/191601 RPT#: [id number] DC DATE: STATUS: ADM IN [facility] [address] [place] [address] END OF REPORT
--- NOTE | 2019-12-07 16:17 | MORECARE ---
CASE MANAGEMENT DISCHARGE SUMMARY PATIENT: NIKOLAI ROGERS UNIT: [id number] ADM DATE: 12/01/19 AGE: 89 : [birth year] SEX: M ROOM/BED: D.2101 AUTHOR: GRECIA,DOC PHYSICIAN: REFERRING PHYSICIAN: JAMILA WALKER MD DATE OF SERVICE: 12/07/19 Discharge Plan Patient Name: NIKOLAI ROGERS Facility: [facility]:[place] : 1930 Planned Disposition: Inpatient Rehab Anticipated Discharge Date: Discharge Date: Expected LOS: 0 Initial Reviewer: [email or web address] Initial Review Date: 12/01/2019 Generated: 12/07/19 5:16 pm Comments DCP- Discharge Planning Updated by [id number]: Triny Borrero on 12/07/19 3:[address] 1542: CM left a VM with Rebekah Arguello to inquire if the [facility] will contract with [facility] for this patient. Provided my phone number and await CB. Contacted by Rebekah Arguello FRONT DESK COORDINATOR, with [facility] regarding transfer. Per Rebekah, the [facility] is not accepting patients to rehab at this time. States she cannot see where patient might need Rehab from her notes. CM faxed required information to [phone], for the patient's chart. DCP- Discharge Planning Updated by [id number]: Triny Borrero on 12/06/19 12:[address] CM contacted the [facility] regarding patient's request to transfer there for Rehab. TOR spoke with Linsey, with the [facility], provided required information. Per Linsey, the [facility] requires a patient to go into a 14 day quarantine, be tested for [facility] at the [facility], prior to going into rehab. TOR provided MD contact number for P2P. Patient has been made aware of this and is in agreement. DCP- Discharge Planning Updated by [email or web address]: Triny Borrero on 12/06/19 11:[address] DC Plan: Rehab vs home. Patient chan not want to use his Medicare benefits, and he agrees to [facility] rehab if he can be accepted. CM will contact the [facility]. CM notified Roseann, with [facility] of same. CM met with patient to discuss initial discharge planning. Patient is in agreement to proceed with the assessment. Patient reports that he lives at home independently with his S-I-L, Irvin Segundo, #[phone]. Patient is alert/oriented. Stairs/steps:0. PCP: YASMIN CARRASCO. Pharmacy: [facility].Patient states he has been able to obtain all of her prescribed medications. HHS: No. DME: Walker, Shower chair. Patient gives permission to speak with family members. 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 CM discussed the availability of HH, Rehab, SNF, OP Therapy, DME services. Patient agrees to Rehab, will attempt to find Rehab facility contracted with [facility]. Patient denies hospitalization within the past 30 days. Patient denies the use of community resources HUMAN RESOURCE MANAGER. Transportation at time of discharge: Patient's son-in-law. Patient declines SNF stay, only wants Rehab inpatient. DCP- Discharge Planning Updated by [email or web address]: Triny Blackmonlroy on 12/03/19 4:[address] CM contacted patient's son Irvin Segundo @[phone], to verify if he/patient wants to stay at [facility] of [facility]. Patient's son request that patient stay here at [facility] for treatment and rehab. Per Caprice, with [facility], they are unable to transfer until Friday due to the December 03 holiday. CB on Friday if needed. DCPIA - Discharge Planning Initial Assessment Updated by [id number]: Triny Adair on 12/06/19 1:48 pm * Is the patient Alert and Oriented? Yes * How many steps to enter\exit or inside your home? * PCP [facility] * Preadmission Environment Home with Family * ADLs Independent * Equipment Rolling Walker Shower Chair * Other Equipment NA * List name and contact numbers for known caregivers / representatives who currently or will assist patient after discharge: Irvin Segundo [phone] * Verbal permission to speak to the caregivers and representatives has been obtained from the patient. Yes * Community resources currently utilized None * Please name any agencies selected above. [facility] * Additional services required to return to the preadmission environment? Yes * Can the patient safely return to the preadmission environment? No * Has this patient been hospitalized within the prior 30 days at any hospital? No Last DP export: 12/07/19 3:02 pm Patient Name: NIKOLAI ROGERS Page [phone] at 1617 All edits/amendments must be made on the electronic document DICTATION DATE: 12/07/191615 HR REPRESENTATIVE: BRIDGETTE 12/07/191615 RPT#: [id number] DC DATE: STATUS: ADM IN [facility] [address] [place] [address] END OF REPORT
--- NOTE | 2019-12-07 16:24 | MORECARE ---
CASE MANAGEMENT DISCHARGE SUMMARY PATIENT: NIKOLAI ROGERS UNIT: [id number] ADM DATE: 12/01/19 AGE: 89 : [birth year] SEX: M ROOM/BED: D.2101 AUTHOR: GRECIA,DOC PHYSICIAN: REFERRING PHYSICIAN: JAMILA WALKER MD DATE OF SERVICE: 12/07/19 Discharge Plan Patient Name: NIKOLAI ROGERS Facility: [facility]:[place] : 1930 Planned Disposition: Inpatient Rehab Anticipated Discharge Date: Discharge Date: Expected LOS: 0 Initial Reviewer: [email or web address] Initial Review Date: 12/01/2019 Generated: 12/07/19 5:23 pm Comments DCP- Discharge Planning Updated by [id number]: Triny Borrero on 12/07/19 3:[address] 1618: CM left a VM with patient's son, Irvin Segundo, regarding additional placement options for this patient: HHS or Skilled in a nursing facility. Await CB. CM contacted Yoselyn, with [facility] regarding a [facility] time contract with [facility], per Yoselyn, the [place] routinely will not contract, but can use Medicare benefits, if the patient and son will agree. 1542: CM left a VM with Rebekah Arguello to inquire if the [facility] will contract with [facility] for this patient. Provided my phone number and await CB. Contacted by Rebekah Arguello RIGGING FOREMAN, with [facility] regarding transfer. Per Rebekah, the [facility] is not accepting patients to rehab at this time. States she cannot see where patient might need Rehab from her notes. TOR faxed required information to [phone], for the patient's chart. DCP- Discharge Planning Updated by [id number]: Triny Borrero on 12/06/19 12:[address] CM contacted the [facility] regarding patient's request to transfer there for Rehab. TOR spoke with Linsey, with the [facility], provided required information. Per Linsey, the [place] requires a patient to go into a 14 day quarantine, be tested for COVID at the [facility], prior to going into rehab. TOR provided MD contact number for P2P. Patient has been made aware of this and is in agreement. DCP- Discharge Planning Updated by [id number]: Triny Blackmonlroy on 12/06/19 11:[address] DC Plan: Rehab vs home. Patient chan not want to use his Medicare benefits, and he agrees to [facility] rehab if he can be accepted. CM will contact the [place]. CM notified Roseann, with [facility] of same. CM met with patient to discuss initial discharge planning. Patient is in agreement to proceed with the assessment. Patient reports that he lives at home independently with his S-I-L, Irvin Segundo, #[phone]. Patient is alert/oriented. Stairs/steps:0. PCP: [facility] CARR[facility]. [place]acy[place] [facility]Patient states he has been able to obtain all of her prescribed medications. HHS: No. DME: Walker, Shower chair. Patient gives permission to speak with family members. Patient is Independent with all ADL's, medication management INFORMATION SERVICES CONSULTANT. CM discussed the availability of HH, Rehab, SNF, OP Therapy, DME services. Patient agrees to Rehab, will attempt to find Rehab facility contracted with [place]. Patient denies hospitalization within the past 30 days. Patient denies the use of community resources INFORMATION SERVICES CONSULTANT. Transportation at time of discharge: Patient's son-in-law. Patient declines SNF stay, only wants Rehab inpatient. DCP- Discharge Planning Updated by [id number]: Triny Mcknightoy on 12/03/19 4:[address] CM contacted patient's son Irvin Segundo @[phone], to verify if he/patient wants to stay at [facility] of [facility]. Patient's son request that patient stay here at [facility] for treatment and rehab. Per Caprice, with [facility], they are unable to transfer until Friday due to the December 03 holiday. CB on Friday if needed. DCPIA - Discharge Planning Initial Assessment Updated by [id number]: Triny Adair on 12/06/19 1:48 pm * Is the patient Alert and Oriented? Yes * How many steps to enter\exit or inside your home? * PCP [facility] CARRASCO * Pharmacy [facility] * Preadmission Environment Home with Family * ADLs Independent * Equipment Rolling Walker Shower Chair * Other Equipment NA * List name and contact numbers for known caregivers / representatives who currently or will assist patient after discharge: Irvin Segundo [phone] * Verbal permission to speak to the caregivers and representatives has been obtained from the patient. Yes * Community resources currently utilized None * Please name any agencies selected above. [facility] * Additional services required to return to the preadmission environment? Yes * Can the patient safely return to the preadmission environment? No * Has this patient been hospitalized within the prior 30 days at any hospital? No Last DP export: 12/07/19 3:17 pm Patient Name: NIKOLAI ROGERS Page 12533 at 1624 All edits/amendments must be made on the electronic document DICTATION DATE: 12/07/191622 EVENT LIGHTING SPECIALIST: BRIDGETTE 12/07/191622 RPT#: [id number] DC DATE: STATUS: ADM IN [facility] [address] [place] [address] END OF REPORT
--- NOTE | 2019-12-07 17:58 | NUR ---
OT NOTE: (AM) PT COMPLETED SIT TO STAND WITH MIN A. PT COMPLETED ADL MOB WITH RW WITH CGA. PT COMPLETED HAND AND FACE HYGIENE WHILE STANDING AT SINK WITH SBA/CGA. PT CUED TO FOCUS ON BRING WEIGHT OVER ANKLES FOR INCREASED BALANCE. PT EXHIBITED A TENDENCY TO LEAN FORWARD OF WALKER. (PM) PT COMPLETED SIT TO STAND WITH MIN A. PT COMPLETED CORE STRENGTHENING EXERCISES WHILE SEATED. PT COMPLETED BUE AROM EXERCISES WITH FOCUS ON TRICEPS. [phone] THANK YOU,AMANDA ROMERO
--- NOTE | 2019-12-07 19:20 | NUR ---
REPORT RECEIVED, WILL CONTINUE POC. PATIENT IS AAXO4, UP IN ROOM. NO S/S OF DISTRESS OBSERVED, RR EVEN AND UNLABORED ON 2L O2 VIA NC. PATIENT DENIES NEEDS AT THIS TIME. CL IN REACH, BED LOCKED AND LOWERED. WILL CTM.
[2019-12-07 20:57] VITALS: BP 150/76
[2019-12-07 23:57] VITALS: BP 185/83
[2019-12-08 04:34] VITALS: BP 162/80
[2019-12-08 05:08] LABS: BASOPHILS 0.5 % (0-2); EOSINOPHILS 6.5 % (0-7); HEMATOCRIT 36.6 % (42.0-54.0); HEMOGLOBIN 12.2 g/dL (13.5-17.5); IMMATURE GRANULOCYTES 0.5 % (0-5); LYMPHOCYTES 16.8 % (15-50); MCH 29.5 pg (26.0-34.0); MCHC 33.3 g/dL (31.0-37.0); MCV 88.6 fL (80.0-100.0); MEAN PLATELET VOLUME 11.1 fL (7.4-10.4); MONOCYTES 9.3 % (2-11); NEUTROPHILS 66.4 % (40-80); RBC 4.13 10x6/uL (4.20-6.10); RDW 13.7 % (11.5-14.5); WBC 5.6 10x3/uL (4.8-10.8)
[2019-12-08 05:17] LABS: PLATELET COUNT 118 10x3/uL (130-400)
[2019-12-08 05:27] LABS: CALCIUM 7.9 mg/dL (8.5-10.1); CARBON DIOXIDE 26.2 mmol/L (21.0-32.0); CREATININE - SERUM 1.2 mg/dL (0.6-1.3); POTASSIUM - SERUM 4.2 mmol/L (3.5-5.1)
--- NOTE | 2019-12-08 09:06 | MORECARE ---
CASE MANAGEMENT DISCHARGE SUMMARY PATIENT: NIKOLAI ROGERS UNIT: [id number] ADM DATE: 12/01/19 AGE: 89 : [birth year] SEX: M ROOM/BED: D.2101 AUTHOR: GRECIA,DOC PHYSICIAN: REFERRING PHYSICIAN: JAMILA WALKER MD DATE OF SERVICE: 12/08/19 Discharge Plan Patient Name: NIKOLAI ROGERS Facility: [facility]:[place] : 1930 Planned Disposition: Inpatient Rehab Anticipated Discharge Date: Discharge Date: Expected LOS: 0 Initial Reviewer: [email or web address] Initial Review Date: 12/01/2019 Generated: 12/08/19 10:06 am Comments DCP- Discharge Planning Updated by [email or web address]: Triny Borrero on 12/07/19 3:[address] 1618: CM left a VM with patient's son, Irvin Segundo, regarding additional placement options for this patient: HHS or Skilled in a nursing facility. Await CB. CM contacted Yoselyn, with [facility] regarding a one time contract with the [facility], per Yoselyn, the [place] routinely will not contract, but can use Medicare benefits, if the patient and son will agree. 1542: CM left a VM with Rebekah Arguello to inquire if the [facility] will contract with [facility] for this patient. Provided my phone number and await CB. Contacted by Rebekah Arguello PAPER BAG MAKER, with [facility] regarding transfer. Per Rebekah, the [facility] is not accepting patients to rehab at this time. States she cannot see where patient might need Rehab from her notes. TOR faxed required information to [phone], for the patient's chart. DCP- Discharge Planning Updated by [email or web address]: Triny Borrero on 12/06/19 12:[address] CM contacted the [facility] regarding patient's request to transfer there for Rehab. TOR spoke with Linsey, with the [facility], provided required information. Per Linsey, the [place] requires a patient to go into a 14 day quarantine, be tested for COVID at the [facility], prior to going into rehab. TOR provided MD contact number for P2P. Patient has been made aware of this and is in agreement. DCP- Discharge Planning Updated by [id number]: Triny Blackmonlroy on 12/06/19 11:[address] DC Plan: Rehab vs home. Patient chan not want to use his Medicare benefits, and he agrees to [facility] rehab if he can be accepted. CM will contact the [place]. CM notified Roseann, with [facility] of same. CM met with patient to discuss initial discharge planning. Patient is in agreement to proceed with the assessment. Patient reports that he lives at home independently with his S-I-L, Irvin Segundo, #[phone]. Patient is alert/oriented. Stairs/steps:0. PCP: [facility] CARRASCO. [place]acy[place] [facility]Patient states he has been able to obtain all of her prescribed medications. HHS: No. DME: Walker, Shower chair. Patient gives permission to speak with family members. Patient is Independent with all ADL's, medication management DIGITAL MARKETING APPRENTICE. CM discussed the availability of HH, Rehab, SNF, OP Therapy, DME services. Patient agrees to Rehab, will attempt to find Rehab facility contracted with [place]. Patient denies hospitalization within the past 30 days. Patient denies the use of community resources DIGITAL MARKETING APPRENTICE. Transportation at time of discharge: Patient's son-in-law. Patient declines SNF stay, only wants Rehab inpatient. DCP- Discharge Planning Updated by [id number]: Triny Mcknightoy on 12/03/19 4:[address] CM contacted patient's son Irvin Segundo @[phone], to verify if he/patient wants to stay at [facility] vs use of [facility]. Patient's son request that patient stay here at [facility] for treatment and rehab. Per Caprice, with [facility], they are unable to transfer until Friday due to the December 03 holiday. CB on Friday if needed. DCPIA - Discharge Planning Initial Assessment Updated by [email or web address]: Triny Adair on 12/06/19 1:48 pm * Is the patient Alert and Oriented? Yes * How many steps to enter\exit or inside your home? * PCP [facility] CARRASCO * [facility]acy [facility] * Preadmission Environment Home with Family * ADLs Independent * Equipment Rolling Walker Shower Chair * Other Equipment NA * List name and contact numbers for known caregivers / representatives who currently or will assist patient after discharge: Irvin Segundo [phone] * Verbal permission to speak to the caregivers and representatives has been obtained from the patient. Yes * Community resources currently utilized None * Please name any agencies selected above. [facility] * Additional services required to return to the preadmission environment? Yes * Can the patient safely return to the preadmission environment? No * Has this patient been hospitalized within the prior 30 days at any hospital? No Last DP export: 12/07/19 3:24 pm Patient Name: NIKOLAI ROGERS Page [phone] at 0906 All edits/amendments must be made on the electronic document DICTATION DATE: 12/08/19905 BEAUTY SCHOOL INSTRUCTOR: BRIDGETTE 12/08/19905 RPT#: [id number] DC DATE: STATUS: ADM IN [facility] [address] [place] [address] END OF REPORT
--- NOTE | 2019-12-08 09:40 | NUR ---
PT SITTING IN RELCINER CHAIR. PITTIING EDEMA TO BLE. TEACHING DONE WITH PT ON TO ELEVATE LEGS. PT STATES "I DO ON AND OFF." PT STATES HE HAS NO FURHTER NEEDS AT THIS TIME. BED LOW. CL IN REACH. WILL CONTINUE WITH POC.
[2019-12-08 09:41] VITALS: BP 163/79
--- NOTE | 2019-12-08 11:59 | NUR ---
I have reviewed this patient and I concur with the Shift Assessment completed by the Licensed Practical Nurse today this shift.
[2019-12-08 13:43] VITALS: BP 126/81
--- NOTE | 2019-12-08 16:13 | MORECARE ---
CASE MANAGEMENT DISCHARGE SUMMARY PATIENT: NIKOLAI ROGERS UNIT: [id number] ADM DATE: 12/01/19 AGE: 89 : [birth year] SEX: M ROOM/BED: D.2101 AUTHOR: GRECIA,DOC PHYSICIAN: REFERRING PHYSICIAN: JAMILA WALKER MD DATE OF SERVICE: 12/08/19 Discharge Plan Patient Name: NIKOLAI ROGERS Facility: [facility]:[place] : 1930 Planned Disposition: Inpatient Rehab Anticipated Discharge Date: Discharge Date: Expected LOS: 0 Initial Reviewer: [id number] Initial Review Date: 12/01/2019 Generated: 12/08/19 5:13 pm Comments DCP- Discharge Planning Updated by [id number]: Triny Borrero on 12/07/19 3:[address] 1618: CM left a VM with patient's son, Irvin Segundo, regarding additional placement options for this patient: HHS or Skilled in a nursing facility. Await CB. CM contacted Yoselyn, with [facility] regarding a one time contract with the [facility], per Yoselyn, the [place] routinely will not contract, but can use Medicare benefits, if the patient and son will agree. 1542: CM left a VM with Rebekah Arguello to inquire if the [facility] will contract with [facility] for this patient. Provided my phone number and await CB. Contacted by Rebekah Arguello SHEET ROCK TAPER HELPER, with VA regarding transfer. Per Rebekah, the [facility] is not accepting patients to rehab at this time. States she cannot see where patient might need Rehab from her notes. TOR faxed required information to [phone], for the patient's chart. DCP- Discharge Planning Updated by [id number]: Triny Borrero on 12/06/19 12:[address] CM contacted the [facility] regarding patient's request to transfer there for Rehab. TOR spoke with Linsey, with the [facility], provided required information. Per Linsey, the [place] requires a patient to go into a 14 day quarantine, be tested for COVID at the [facility], prior to going into rehab. TOR provided MD contact number for P2P. Patient has been made aware of this and is in agreement. DCP- Discharge Planning Updated by [id number]: Triny Blackmonlroy on 12/06/19 11:[address] DC Plan: Rehab vs home. Patient chan not want to use his Medicare benefits, and he agrees to [facility] rehab if he can be accepted. CM will contact the [place]. CM notified Roseann, with [facility] of same. CM met with patient to discuss initial discharge planning. Patient is in agreement to proceed with the assessment. Patient reports that he lives at home independently with his S-I-L, Irvin Segundo, #[phone]. Patient is alert/oriented. Stairs/steps:0. PCP: [facility] CARRASCO. [facility]acy[place] [facility]Patient states he has been able to obtain all of her prescribed medications. HHS: No. DME: Walker, Shower chair. Patient gives permission to speak with family members. Patient is Independent with all ADL's, medication management RUG SETTER AXMINSTER. CM discussed the availability of HH, Rehab, SNF, OP Therapy, DME services. Patient agrees to Rehab, will attempt to find Rehab facility contracted with [facility]. Patient denies hospitalization within the past 30 days. Patient denies the use of community resources RUG SETTER AXMINSTER. Transportation at time of discharge: Patient's son-in-law. Patient declines SNF stay, only wants Rehab inpatient. DCP- Discharge Planning Updated by [id number]: Triny Mcknightoy on 12/03/19 4:[address] CM contacted patient's son Irvin Segundo @[phone], to verify if he/patient wants to stay at [facility] of [facility]. Patient's son request that patient stay here at [facility] for treatment and rehab. Per Caprice, with [facility], they are unable to transfer until Friday due to the December 03 holiday. CB on Friday if needed. DCPIA - Discharge Planning Initial Assessment Updated by [id number]: Triny Adair on 12/06/19 1:48 pm * Is the patient Alert and Oriented? Yes * How many steps to enter\exit or inside your home? * PCP [facility]ARR[facility] * [facility] * Preadmission Environment Home with Family * ADLs Independent * Equipment Rolling Walker Shower Chair * Other Equipment NA * List name and contact numbers for known caregivers / representatives who currently or will assist patient after discharge: Irvin Segundo [phone] * Verbal permission to speak to the caregivers and representatives has been obtained from the patient. Yes * Community resources currently utilized None * Please name any agencies selected above. [facility] * Additional services required to return to the preadmission environment? Yes * Can the patient safely return to the preadmission environment? No * Has this patient been hospitalized within the prior 30 days at any hospital? No External Providers External Provider: [facility] Next Contact Date: Service Request Date: Service Type: Resolution: Reviewer: Comments: Last DP export: 12/08/19 8:06 am Patient Name: NIKOLAI ROGERS Page [id number] at 1613 All edits/amendments must be made on the electronic document DICTATION DATE: 12/08/191612 SCHOOL COORDINATOR: BRIDGETTE 12/08/191612 RPT#: [id number] DC DATE: STATUS: ADM IN [facility] [address] [place] [address] END OF REPORT
--- NOTE | 2019-12-08 17:40 | MORECARE ---
CASE MANAGEMENT DISCHARGE SUMMARY PATIENT: NIKOLAI ROGERS UNIT: [id number] ADM DATE: 12/01/19 AGE: 89 : [birth year] SEX: M ROOM/BED: D.2101 AUTHOR: GRECIA,DOC PHYSICIAN: REFERRING PHYSICIAN: JAMILA WALKER MD DATE OF SERVICE: 12/08/19 Discharge Plan Patient Name: NIKOLAI ROGERS Facility: [facility]:[place] : 1930 Planned Disposition: Inpatient Rehab Anticipated Discharge Date: Discharge Date: Expected LOS: 0 Initial Reviewer: [id number] Initial Review Date: 12/01/2019 Generated: 12/08/19 6:39 pm Comments DCP- Discharge Planning Updated by [id number]: Triny Borrero on 12/08/19 4:[address] CM contacted patient's son-in-law, Irvin Segundo regarding the [facility] not accepting patient's due to the COVID crisis. Mr. Segundo states he doesn't listen to any voice mails on his phone, and was not aware. Explained the other options are HHS or a Skilled bed in a nursing facility. Per patient's son, he has been a client with [facility], in the past and this where he would like for the patient to go. This was explained in detail to the patient and he has signed a Patient Choice for [facility]. CM contacted [facility] to assist with finding a facility that will accept the patient. Required information has been faxed to Iris to [phone]. TOR awaits the decision from [facility]. CM wroth down the name of [facility] and his son-in-law's phone number for the patient. DCP- Discharge Planning Updated by [id number]: Triny Borrero on 12/07/19 3:[address] 1618: TOR left a VM with patient's son, Irvin Segundo, regarding additional placement options for this patient: HHS or Skilled in a nursing facility. Await CB. TOR contacted Yoselyn, with [facility] regarding a one time contract with the [facility], per Yoselyn, the [place] routinely will not contract, but can use Medicare benefits, if the patient and son will agree. [id number]: CM left a VM with Rebekah Arguello to inquire if the [facility] will contract with [facility] for this patient. Provided my phone number and await CB. Contacted by Rebekah Arguello APRN, with [facility] regarding transfer. Per Rebekah, the [facility] is not accepting patients to rehab at this time. States she cannot see where patient might need Rehab from her notes. CM faxed required information to [phone], for the patient's chart. DCP- Discharge Planning Updated by [id number]: Triny Borrero on 12/06/19 12:[address] CM contacted the [facility] regarding patient's request to transfer there for Rehab. CM spoke with Linsey, with the [facility], provided required information. Per Linsey, the [place] requires a patient to go into a 14 day quarantine, be [facility] at the [facility], prior to going into rehab. CM provided MD contact number for P2P. Patient has been made aware of this and is in agreement. DCP- Discharge Planning Updated by [email or web address]: Triny Borrero on 12/06/19 11:[address] DC Plan: Rehab vs home. Patient chan not want to use his Medicare benefits, and he agrees to [facility] rehab if he can be accepted. CM will contact the [place]. CM notified Roseann, with [facility] of same. CM met with patient to discuss initial discharge planning. Patient is in agreement to proceed with the assessment. Patient reports that he lives at home independently with his S-I-L, Irvin Segundo, #[phone]. Patient is alert/oriented. Stairs/steps:0. PCP: [facility] CARRASCO. [place]acy[place] [facility]Patient states he has been able to obtain all of her prescribed medications. HHS: No. DME: Walker, Shower chair. Patient gives permission to speak with family members. Patient is Independent with all ADL's, medication management ACT TUTOR. CM discussed the availability of HH, Rehab, SNF, OP Therapy, DME services. Patient agrees to Rehab, will attempt to find Re[facility] facility [facility] with [facility]. Patient denies hospitalization within the past 30 days. Patient denies the use of community resources ACT TUTOR. Transportation at time of discharge: Patient's son-in-law. Patient declines SNF stay, only wants Rehab inpatient. DCP- Discharge Planning Updated by [id number]: Triny Blackmonlroy on 12/03/19 4:[address] CM contacted patient's son Irvin Segundo @[phone], to verify if he/patient wants to stay at [facility] of [facility]. Patient's son request that patient stay here at [facility] for treatment and rehab. Per Caprice, with [facility], they are unable to transfer until Friday due to the December 03 holiday. CB on Friday if needed. DCPIA - Discharge Planning Initial Assessment Updated by [id number]: Triny Blackmonlroy on 12/06/19 1:48 pm * Is the patient Alert and Oriented? Yes * How many steps to enter\exit or inside your home? * [facility] * Preadmission Environment Home with Family * ADLs Independent * Equipment Rolling Walker Shower Chair * Other Equipment NA * List name and contact numbers for known caregivers / representatives who currently or will assist patient after discharge: Irvin Segundo [phone] * Verbal permission to speak to the caregivers and representatives has been obtained from the patient. Yes * Community resources currently utilized None * Please name any agencies selected above. [facility] * Additional services required to return to the preadmission environment? Yes * Can the patient safely return to the preadmission environment? No * Has this patient been hospitalized within the prior 30 days at any hospital? No Coverage Notice Reviewer: [id number] - Triny Borrero Notice Issued Date-Time: 12/08/2019 17:34 Notice Type: Patient Choice Letter Notice Delivered To: Patient Relationship to Patient: Self Radiotelephone Technical Operator Name: Nikolai Rogers Delivery Method: HAND - Hand Delivered Delmi Days: Prior Verbal Notification: Recipient Understood Notice: Yes Recipient Signature: Yes Med Rec Note Co-signed by Attending: Coverage Notice Comment: Patient choice for [facility] placed on the chart. Last DP export: 12/08/19 3:13 pm Patient Name: NIKOLAI ROGERS Page [phone] at 1740 All edits/amendments must be made on the electronic document DICTATION DATE: 12/08/191738 CLIENT EXPERIENCE MANAGER: BRIDGETTE 12/08/191738 RPT#: [id number] DC DATE: STATUS: ADM IN [facility] [address] [place] [address] END OF REPORT
--- NOTE | 2019-12-08 17:51 | NUR ---
OT NOTE: (AM) PT COMPLETED SIT TO STAND WITH SBA. PT COMPLETED ADL MOB WITH CGA. PT COMPLETED BUE AROM TOLERATED. (PM) PT COMPLETED FACE WASH WITH SETUP. PT COMPLETED BUE AROM AXS. PT COMPLETED SIT TO STAND WITH SBA. [phone] THANK YOU,AMANDA ROMERO
--- NOTE | 2019-12-08 19:00 | NUR ---
REPORT RECEIVED, WILL CONTINUE POC. PATIENT IS RESTING IN BED WITH EYES CLOSED. NO S/S OF DISTRESS OBSERVED, RR EVEN AND UNLABORED ON ROOM AIR. PIV TO RT AC, PATENT, SL, LAMONTG C/D/I. CL IN REACH, BED LOCKED AND LOWERED. WILL CTM.
[2019-12-08 20:00] VITALS: BP 162/68
[2019-12-09] VITALS: BP 173/96
[2019-12-09 04:00] VITALS: BP 132/72
[2019-12-09 06:31] LABS: BASOPHILS 0.6 % (0-2); EOSINOPHILS 5.7 % (0-7); HEMATOCRIT 35.5 % (42.0-54.0); HEMOGLOBIN 11.7 g/dL (13.5-17.5); IMMATURE GRANULOCYTES 0.6 % (0-5); LYMPHOCYTES 14.7 % (15-50); MCH 29.4 pg (26.0-34.0); MCV 89.2 fL (80.0-100.0); MEAN PLATELET VOLUME 10.3 fL (7.4-10.4); MONOCYTES 11.5 % (2-11); NEUTROPHILS 66.9 % (40-80); RBC 3.98 10x6/uL (4.20-6.10); RDW 13.9 % (11.5-14.5); WBC 5.3 10x3/uL (4.8-10.8)
[2019-12-09 06:34] LABS: PLATELET COUNT 176 10x3/uL (130-400)
[2019-12-09 06:38] LABS: ANION GAP 9.1 mmol/L (8-16); CALCIUM 8.1 mg/dL (8.5-10.1); CARBON DIOXIDE 27.4 mmol/L (21.0-32.0); CREATININE - SERUM 1.3 mg/dL (0.6-1.3)
[2019-12-09 06:39] LABS: POTASSIUM - SERUM 3.5 mmol/L (3.5-5.1)
[2019-12-09 09:00] VITALS: BP 114/72
--- NOTE | 2019-12-09 09:21 | MORECARE ---
CASE MANAGEMENT DISCHARGE SUMMARY PATIENT: NIKOLAI ROGERS UNIT: [id number] ADM DATE: 12/01/19 AGE: 89 : [birth year] SEX: M ROOM/BED: D.2101 AUTHOR: GRECIA,DOC PHYSICIAN: REFERRING PHYSICIAN: JAMILA WALKER MD DATE OF SERVICE: 12/09/19 Discharge Plan Patient Name: NIKOLAI ROGERS Facility: [facility]:[place] : 1930 Planned Disposition: Inpatient Rehab Anticipated Discharge Date: Discharge Date: Expected LOS: 0 Initial Reviewer: [email or web address] Initial Review Date: 12/01/2019 Generated: 12/09/19 10:20 am Comments DCP- Discharge Planning Updated by [id number]: Triny Borrero on 12/08/19 4:[address] CM contacted patient's son-in-law, Irvin Segundo [phone] regarding the [facility] not accepting [facility] due to the COVID crisis. Mr. Segundo states he doesn't listen to any voice mails on his phone, and was not aware. Explained the other options are HHS or a Skilled bed in a nursing facility. Per patient's son, he has been a client with [facility], in the past and this where he would like for the patient to go. This was explained in detail to the patient and he has signed a Patient Choice for [facility]. CM contacted [facility] to assist with finding a facility that will accept the patient. Required information has been faxed to Iris to [phone]. TOR awaits the decision from [facility]. CM wroth down the name of [facility] and his son-in-law's phone number for the patient. DCP- Discharge Planning Updated by [id number]: Triny Borrero on 12/07/19 3:[address] 1618: TOR left a VM with patient's son, Irvin Segundo, regarding additional placement options for this patient: HHS or Skilled in a nursing facility. Await CB. TOR contacted Yoselyn, with [facility] regarding a one time contract with the [facility], per Yoselyn, the [facility] routinely will not contract, but can use Medicare benefits, if the patient and son will agree. 1549: CM left a VM with Rebekah Arguello to inquire if the VA will contract with [facility] for this patient. Provided my phone number and await CB. Contacted by Rebekah Arguello APRN, with [facility] regarding transfer. Per Rebekah, the [facility] is not accepting patients to rehab at this time. States she cannot see where patient might need Rehab from her notes. CM faxed required information to [phone], for the patient's chart. DCP- Discharge Planning Updated by [id number]: Triny Borrero on 12/06/19 12:[address] CM contacted the [facility] regarding patient's request to transfer there for Rehab. CM spoke with Linsey, with the [facility], provided required information. Per Linsey, the [facility] requires a patient to go into a 14 day quarantine, be tested [facility] at the [facility], prior to going into rehab. CM provided MD contact number for [facility]. Patient has been made aware of this and is in agreement. DCP- Discharge Planning Updated by [email or web address]: Triny Borrero on 12/06/19 11:[address] DC Plan: Rehab vs home. Patient chan not want to use his Medicare benefits, and he agrees to VA rehab if he can be accepted. CM will contact the [facility]. CM notified Roseann, with [facility] of same. CM met with patient to discuss initial discharge planning. Patient is in agreement to proceed with the assessment. Patient reports that he lives at home independently with his S-I-L, Irvin Segundo, #[phone]. Patient is alert/oriented. Stairs/steps:0. PCP: [facility] CARR[facility]CO. [facility]acy[facility].Patient states he has been able to obtain all of her prescribed medications. HHS: No. DME: Walker, Shower chair. Patient gives permission to speak with family members. 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 CM discussed the availability of HH, Rehab, SNF, OP Therapy, DME services. Patient agrees to Rehab, will attempt to find Rehab facility contracted with [facility]. Patient denies hospitalization within the past 30 days. Patient denies the use of community resources INSTRUMENT ROOM TECHNICIAN. Transportation at time of discharge: Patient's son-in-law. Patient declines SNF stay, only wants Rehab inpatient. DCP- Discharge Planning Updated by [email or web address]: Triny Borrero on 12/03/19 4:[address] CM contacted patient's son Irvin Segundo @[phone], to verify if he/patient wants to stay at [facility] vs use of [facility]. Patient's son request that patient stay here at [facility] for treatment and rehab. Per Caprice, with [facility], they are unable to transfer until Friday due to the December 03 holiday. CB on Friday if needed. DCPIA - Discharge Planning Initial Assessment Updated by [id number]: Triny Blackmonlroy on 12/06/19 1:48 pm * Is the patient Alert and Oriented? Yes * How many steps to enter\exit or inside your home? * PCP [facility] MD * [facility]acy [facility] * Preadmission Environment Home with Family * ADLs Independent * Equipment Rolling Walker Shower Chair * Other Equipment NA * List name and contact numbers for known caregivers / representatives who currently or will assist patient after discharge: Irvin Segundo [phone] * Verbal permission to speak to the caregivers and representatives has been obtained from the patient. Yes * Community resources currently utilized None * Please name any agencies selected above. [facility] * Additional services required to return to the preadmission environment? Yes * Can the patient safely return to the preadmission environment? No * Has this patient been hospitalized within the prior 30 days at any hospital? No Coverage Notice Reviewer: [id number] - Triny Borrero Notice Issued Date-Time: 12/08/2019 17:34 Notice Type: Patient Choice Letter Notice Delivered To: Patient Relationship to Patient: Self Network Solutions Architect Name: Nikolai Rogers Delivery Method: HAND - Hand Delivered Delmi Days: Prior Verbal Notification: Recipient Understood Notice: Yes Recipient Signature: Yes Med Rec Note Co-signed by Attending: Coverage Notice Comment: Patient choice for [facility] placed on the chart. Last DP export: 12/08/19 4:40 pm Patient Name: NIKOLAI ROGERS Page 15109 at 0921 All edits/amendments must be made on the electronic document DICTATION DATE: 12/09/19919 NOVELTY CHAIN MAKER: BRIDGETTE 12/09/19919 RPT#: [id number] DC DATE: STATUS: ADM IN [facility] [address] [place] [address] END OF REPORT
--- NOTE | 2019-12-09 09:29 | MORECARE ---
CASE MANAGEMENT DISCHARGE SUMMARY PATIENT: NIKOLAI ROGERS UNIT: [id number] ADM DATE: 12/01/19 AGE: 89 : [birth year] SEX: M ROOM/BED: D.2101 AUTHOR: GRECIA,DOC PHYSICIAN: REFERRING PHYSICIAN: JAMILA WALKER MD DATE OF SERVICE: 12/09/19 Discharge Plan Patient Name: NIKOLAI ROGERS Facility: [facility]:[place] : 1930 Planned Disposition: Inpatient Rehab Anticipated Discharge Date: Discharge Date: Expected LOS: 0 Initial Reviewer: [email or web address] Initial Review Date: 12/01/2019 Generated: 12/09/19 10:28 am Comments DCP- Discharge Planning Updated by [id number]: Triny Borrero on 12/09/19 8:[address] CB from Rebekah Arguello APN for [facility]. Per Rebekah, the patient is not service connected and the [place] probably will not cover for any Rehab services. CM request fax number for information to be faxed. Fx#[phone]. Faxed information to same. DCP- Discharge Planning Updated by [email or web address]: Triny Borrero on 12/08/19 4:[address] CM contacted patient's son-in-law, Irvin Segundo regarding the [facility] not accepting patient's due to the COVID crisis. Mr. Segundo states he doesn't listen to any voice mails on his phone, and was not aware. Explained the other options are [facility] or a Skilled bed in a nursing facility. Per patient's son, he has been a client with [facility], in the past and this where he would like for the patient to go. This was explained in detail to the patient and he has signed a Patient Choice for [facility]. CM contacted [facility] to assist with finding a facility that will accept the patient. Required information has been faxed to Iris to [phone]. TOR awaits the decision from [facility]. CM wroth down the name of [facility] and his son-in-law's phone number for the patient. DCP- Discharge Planning Updated by [id number]: Triny Borrero on 12/07/19 3:[address] 1618: CM left a VM with patient's son, Irvin Segundo, regarding additional placement options for this patient: HHS or Skilled in a nursing facility. Await CB. CM contacted Yoselyn, with [facility] regarding a one time contract with the [facility], per Yoselyn, the [facility] routinely will not contract, but can use Medicare benefits, if the patient and son will agree. 1542: CM left a VM with Rebekah Arguello to inquire if the VA will contract with [facility] for this patient. Provided my phone number and await CB. Contacted by Rebekah Arguello PASTE UP ARTIST, with VA regarding transfer. Per Rebekah, the [facility] is not accepting patients to rehab at this time. States she cannot see where patient might need Rehab from her notes. CM faxed required information to [phone], for the patient's chart. DCP- Discharge Planning Updated by [id number]: Triny Borrero on 12/06/19 12:[address] CM contacted the [facility] regarding patient's request to transfer there for Rehab. CM spoke with Linsey, with the [facility], provided required information. Per Linsey, the [facility] requires a patient to go into a 14 day quarantine, be tested for COVID at the [facility], prior to going into rehab. CM provided MD contact number for [facility]. Patient has been made aware of this and is in agreement. DCP- Discharge Planning Updated by [id number]: Triny Borrero on 12/06/19 11:[address] DC Plan: Rehab vs home. Patient chan not want to use his Medicare benefits, and he agrees to VA rehab if he can be accepted. CM will contact the VA. CM notified Roseann, with [facility] of same. CM met with patient to discuss initial discharge planning. Patient is in agreement to proceed with the assessment. Patient reports that he lives at home independently with his S-I-L, Irvin Segundo, #[phone]. Patient is alert/oriented. Stairs/steps:0. PCP: [facility]. [facility]Patient states he has been able to obtain all of her prescribed medications. HHS: No. DME: Walker, Shower chair. Patient gives permission to speak with family members. Patient is Independent with all ADL's, medication management PLATE FINISHER. CM discussed the availability of HH, Rehab, SNF, OP Therapy, DME services. Patient agrees to Rehab, will attempt to find Rehab facility contracted with [facility]. Patient denies hospitalization within the past 30 days. Patient denies the use of community resources PLATE FINISHER. Transportation at time of discharge: Patient's son-in-law. Patient declines SNF stay, only wants Rehab inpatient. DCP- Discharge Planning Updated by [email or web address]: Triny Borrero on 12/03/19 4:[address] CM contacted patient's son Irvin Segundo @[phone], to verify if he/patient wants to stay at [facility] vs use of [facility]. Patient's son request that patient stay here at [facility] for treatment and rehab. Per Caprice, with [facility], they are unable to transfer until Friday due to the December 03 holiday. CB on Friday if needed. DCPIA - Discharge Planning Initial Assessment Updated by [id number]: Triny Borrero on 12/06/19 1:48 pm * Is the patient Alert and Oriented? Yes * How many steps to enter\exit or inside your home? * [facility]CP [facility] * [facility] * Preadmission Environment Home with Family * ADLs Independent * Equipment Rolling Walker Shower Chair * Other Equipment NA * List name and contact numbers for known caregivers / representatives who currently or will assist patient after discharge: Irvin Segundo [phone] * Verbal permission to speak to the caregivers and representatives has been obtained from the patient. Yes * Community resources currently utilized None * Please name any agencies selected above. [facility] * Additional services required to return to the preadmission environment? Yes * Can the patient safely return to the preadmission environment? No * Has this patient been hospitalized within the prior 30 days at any hospital? No Coverage Notice Reviewer: [id number] - Triny Borrero Notice Issued Date-Time: 12/08/2019 17:34 Notice Type: Patient Choice Letter Notice Delivered To: Patient Relationship to Patient: Self Merchandise Team Manager Name: Nikolai Rogers Delivery Method: HAND - Hand Delivered Delmi Days: Prior Verbal Notification: Recipient Understood Notice: Yes Recipient Signature: Yes Med Rec Note Co-signed by Attending: Coverage Notice Comment: Patient choice for [facility] placed on the chart. Last DP export: 12/09/19 8:21 am Patient Name: NIKOLAI ROGERS Page 24414 at 0929 All edits/amendments must be made on the electronic document DICTATION DATE: 12/09/19928 WATCH REPAIRER APPRENTICE: BRIDGETTE 12/09/19928 RPT#: [id number] DC DATE: STATUS: ADM IN [facility] [address] [place] [address] END OF REPORT
[2019-12-09 11:00] VITALS: BP 133/82
--- NOTE | 2019-12-09 12:32 | MORECARE ---
CASE MANAGEMENT DISCHARGE SUMMARY PATIENT: NIKOLAI ROGERS UNIT: [id number] ADM DATE: 12/01/19 AGE: 89 : [birth year] SEX: M ROOM/BED: D.2103 AUTHOR: GRECIA,DOC PHYSICIAN: REFERRING PHYSICIAN: JAMILA WALKER MD DATE OF SERVICE: 12/09/19 Discharge Plan Patient Name: NIKOLAI ROGERS Facility: [facility]:[place] : 1930 Planned Disposition: Inpatient Rehab Anticipated Discharge Date: 12/12/19 Discharge Date: Expected LOS: 11 Initial Reviewer: [email or web address] Initial Review Date: 12/01/2019 Generated: 12/09/19 1:32 pm Comments DCP- Discharge Planning Updated by [email or web address]: Triny Borrero on 12/09/19 11:[address] Additional information faxed to Iris Leo for [facility]. The patient will have to have a COVID test, since he had a temp of 102 upon admission. COVID testing has been ordered. Patient has been accepted clinically to the [facility], to a Medicare Skilled bed, on Friday. CB from Rebekah Arguello APN for [facility]. Per Rebekah, the patient is not service connected and the [facility] probably will not cover for any Rehab services. CM request fax number for information to be faxed. Fx#[phone]. Faxed information to same. DCP- Discharge Planning Updated by [email or web address]: Triny Borrero on 12/08/19 4:[address] CM contacted patient's son-in-law, Irvin Segundo regarding the [facility] not accepting patient's due to the COVID crisis. Mr. Segundo states he doesn't listen to any voice mails on his phone, and was not aware. Explained the other options are [facility] or a Skilled bed in a nursing facility. Per patient's son, he has been a client with [facility], in the past and this where he would like for the patient to go. This was explained in detail to the patient and he has signed a Patient Choice for the [facility]. CM contacted [facility] to assist with finding a facility that will accept the patient. Required information has been faxed to Iris to [phone]. CM awaits the decision from [facility]. CM wroth down the name of [facility] and his son-in-law's phone number for the patient. DCP- Discharge Planning Updated by [email or web address]: Triny Borrero on 12/07/19 3:[address] 1618: CM left a VM with patient's son, Irvin Segundo, regarding additional placement options for this patient: HHS or Skilled in a nursing facility. Await CB. CM contacted Yoselyn, with [facility] regarding a one time contract with the [facility], per Yoselyn, the [facility] routinely will not contract, but can use Medicare benefits, if the patient and son will agree. 1542: CM left a VM with Rebekah Arguello to inquire if the VA will contract with [facility] for this patient. Provided my phone number and await CB. Contacted by Rebekah Arguello APRN, with [facility] regarding transfer. Per Rebekah, the [facility] is not accepting patients to rehab at this time. States she cannot see where patient might need Rehab from her notes. CM faxed required information to [phone], for the patient's chart. DCP- Discharge Planning Updated by [email or web address]: Triny Borrero on 12/06/19 12:[address] CM contacted the [facility] regarding patient's request to transfer there for Rehab. CM spoke with Linsey, with the [facility], provided required information. Per Linsey, the [facility] requires a patient to go into a 14 day quarantine, be tested for COVID at the [facility], prior to going into rehab. TOR provided MD contact number for [facility]. Patient has been made aware of this and is in agreement. DCP- Discharge Planning Updated by [id number]: Triny Borrero on 12/06/19 11:[address] DC Plan: Rehab vs home. Patient chan not want to use his Medicare benefits, and he agrees to VA rehab if he can be accepted. CM will contact the VA. CM notified Roseann, with [facility] of same. CM met with patient to discuss initial discharge planning. Patient is in agreement to proceed with the assessment. Patient reports that he lives at home independently with his S-I-L, Irvin Segundo, #[phone]. Patient is alert/oriented. Stairs/steps:0. PCP: [facility]. [facility]acy[facility]Patient states he has been able to obtain all of her prescribed medications. HHS: No. DME: Walker, Shower chair. Patient gives permission to speak with family members. 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 CM discussed the availability of HH, Rehab, SNF, OP Therapy, DME services. Patient agrees to Rehab, will attempt to find Rehab facility contracted with [facility]. Patient denies hospitalization within the past 30 days. Patient denies the use of community resources SALES PROMOTION MANAGER. Transportation at time of discharge: Patient's son-in-law. Patient declines SNF stay, only wants Rehab inpatient. DCP- Discharge Planning Updated by [id number]: Triny Borrero on 12/03/19 4:[address] CM contacted patient's son Irvin Segundo @[phone], to verify if he/patient wants to stay at [facility] of [facility]. Patient's son request that patient stay here at [facility] for treatment and rehab. Per Caprice, with [facility], they are unable to transfer until Friday due to the December 03 holiday. CB on Friday if needed. DCPIA - Discharge Planning Initial Assessment Updated by [email or web address]: Triny Borrero on 12/06/19 1:48 pm * Is the patient Alert and Oriented? Yes * How many steps to enter\exit or inside your home? * [facility]CP [facility] * Preadmission Environment Home with Family * ADLs Independent * Equipment Rolling Walker Shower Chair * Other Equipment NA * List name and contact numbers for known caregivers / representatives who currently or will assist patient after discharge: Irvin Segundo [phone] * Verbal permission to speak to the caregivers and representatives has been obtained from the patient. Yes * Community resources currently utilized None * Please name any agencies selected above. [facility] * Additional services required to return to the preadmission environment? Yes * Can the patient safely return to the preadmission environment? No * Has this patient been hospitalized within the prior 30 days at any hospital? No Coverage Notice Reviewer: [id number] - Triny Borrero Notice Issued Date-Time: 12/08/2019 17:34 Notice Type: Patient Choice Letter Notice Delivered To: Patient Relationship to Patient: Self General Utility Worker Name: Nikolai Rogers Delivery Method: HAND - Hand Delivered Delmi Days: Prior Verbal Notification: Recipient Understood Notice: Yes Recipient Signature: Yes Med Rec Note Co-signed by Attending: Coverage Notice Comment: Patient choice for [facility] placed on the chart. Last DP export: 12/09/19 8:29 am Patient Name: NIKOLAI ROGERS Page 72747 at 1232 All edits/amendments must be made on the electronic document DICTATION DATE: 12/09/19 1232 ELEMENTARY SCHOOL COUNSELOR: BRIDGETTE 12/09/19 1232 RPT#: [id number] DC DATE: STATUS: ADM IN [facility] [address] [place] [address] END OF REPORT
--- NOTE | 2019-12-09 13:14 | NUR ---
SITTING UP IN CHAIR WITH CALL LIGHT IN REACH. RESP UL ON RA. RIGHT AC SL INTACT. TELEMETRY SR 68. WILL CONT. PLAN OF CARE.
--- NOTE | 2019-12-09 14:06 | NUR ---
OT NOTE: PT COMPLETED SIT TO STAND WITH SBA.PT COMPLETED ADL MOB WITH RW WITH SBA. PT COMPLETED CAROLINE/DOFF SOCKS WITH CGA. [id number] THANK YOU,AMANDA ROMERO
[2019-12-09 15:00] VITALS: BP 166/80
--- NOTE | 2019-12-09 15:38 | MORECARE ---
CASE MANAGEMENT DISCHARGE SUMMARY PATIENT: NIKOLAI ROGERS UNIT: [id number] ADM DATE: 12/01/19 AGE: 89 : [birth year] SEX: M ROOM/BED: D.2101 AUTHOR: GRECIA,DOC PHYSICIAN: REFERRING PHYSICIAN: JAMILA WALKER MD DATE OF SERVICE: 12/09/19 Discharge Plan Patient Name: NIKOLAI ROGERS Facility: [facility]:[place] : 1930 Planned Disposition: Inpatient Rehab Anticipated Discharge Date: 12/12/19 Discharge Date: Expected LOS: 11 Initial Reviewer: [id number] Initial Review Date: 12/01/2019 Generated: 12/09/19 4:37 pm Comments DCP- Discharge Planning Updated by [id number]: Triny Borrero on 12/09/19 2:[address] Marika Atkinson ([phone]) CM/DC liaison planner for [facility], called to inquire about DC plans for patient. CM made Marika aware that the patient has been accepted to [facility] and will go into the facility on Friday. CM read the Gait training comments, for distances and assist to her. DCP- Discharge Planning Updated by [email or web address]: Triny Borrero on 12/09/19 11:[address] Additional information faxed to Iris Leo for [facility]. The patient will have to have a COVID test, since he had a temp of 102 upon admission. COVID testing has been ordered. Patient has been accepted clinically to the [facility], to a Medicare Skilled bed, on Friday. CB from Rebekah Arguello APN for [facility]. Per Rebekah, the patient is not service connected and the [place] probably will not cover for any Rehab services. CM request fax number for information to be faxed. Fx#[phone]. Faxed information to same. DCP- Discharge Planning Updated by [id number]: Triny Borrero on 12/08/19 4:[address] CM contacted patient's son-in-law, Irvin Segundo [phone] regarding the [facility] not accepting patient's due to the COVID crisis. Mr. Segundo states he doesn't listen to any voice mails on his phone, and was not aware. Explained the other options are HHS or a Skilled bed in a nursing facility. Per patient's son, he [facility] a client [facility] in the past and this where he would like for the patient to go. This was explained in detail to the patient and he has signed a Patient Choice for [facility]. CM contacted Iris Leo to assist with finding a facility that will accept the patient. Required information has been faxed to Iris to [phone]. CM awaits the decision from [facility]. CM wroth down the name of [facility] and his son-in-law's phone number for the patient. DCP- Discharge Planning Updated by [email or web address]: Triny Borrero on 12/07/19 3:[address] 1618: CM left a VM with patient's son, Irvin Segundo, regarding additional placement options for this patient: HHS or Skilled in a nursing facility. Await CB. CM contacted Yoselyn, with [facility] regarding a [facility] time contract with [facility], per Yoselyn, the [place] routinely will not contract, but can use Medicare benefits, if the patient and son will agree. 1542: CM left a VM with Rebekah Arguello to inquire if the [facility] will contract with [facility] for this patient. Provided my phone number and await CB. Contacted by Rebekah Arguello APRN, with [facility] regarding transfer. Per Rebekah, the [facility] is not accepting patients to rehab at this time. States she cannot see where patient might need Rehab from her notes. TOR faxed required information to [phone], for the patient's chart. DCP- Discharge Planning Updated by [id number]: Triny Borrero on 12/06/19 12:[address] CM contacted the [facility] regarding patient's request to transfer there for Rehab. TOR spoke with Linsey, with the [facility], provided required information. Per Linsey, the [facility] requires a patient to go into a 14 day quarantine, be tested for COVID at the [facility], prior to going into rehab. TOR provided MD contact number for [facility]. Patient has been made aware of this and is in agreement. DCP- Discharge Planning Updated by [id number]: Triny Borrero on 12/06/19 11:[address] DC Plan: Rehab vs home. Patient chan not want to use his Medicare benefits, and he agrees to VA rehab if he can be accepted. CM will contact the [facility]. CM notified Roseann, with [facility] of same. CM met with patient to discuss initial discharge planning. Patient is in agreement to proceed with the assessment. Patient reports that he lives at home independently with his S-I-L, Irvin Segundo, #[phone]. Patient is alert/oriented. Stairs/steps:0. PCP: [facility]. [facility]Patient states he has been able to obtain all of her prescribed medications. HHS: No. DME: Walker, Shower chair. Patient gives permission to speak with family members. Patient is Independent with all ADL's, medication management FRENCH CORD BINDER. CM discussed the availability of HH, Rehab, SNF, OP Therapy, DME services. Patient agrees to Rehab, will attempt to find Rehab facility contracted with [facility]. Patient denies hospitalization within the past 30 days. Patient denies the use of community resources FRENCH CORD BINDER. Transportation at time of discharge: Patient's son-in-law. Patient declines SNF stay, only wants Rehab inpatient. DCP- Discharge Planning Updated by [id number]: Triny Borrero on 12/03/19 4:[address] CM contacted patient's son Irvin Segundo @[phone], to verify if he/patient wants to stay at [facility] vs use of [facility]. Patient's son request that patient stay here at [facility] for treatment and rehab. Per Caprice, with [facility], they are unable to transfer until Friday due to the December 03 holiday. CB on Friday if needed. DCPIA - Discharge Planning Initial Assessment Updated by [id number]: Triny Borrero on 12/06/19 1:48 pm * Is the patient Alert and Oriented? Yes * How many steps to enter\exit or inside your home? * PCP [facility] * [facility]acy [facility] * Preadmission Environment Home with Family * ADLs Independent * Equipment Rolling Walker Shower Chair * Other Equipment NA * List name and contact numbers for known caregivers / representatives who currently or will assist patient after discharge: Irvin Segundo [phone] * Verbal permission to speak to the caregivers and representatives has been obtained from the patient. Yes * Community resources currently utilized None * Please name any agencies selected above. [facility] * Additional services required to return to the preadmission environment? Yes * Can the patient safely return to the preadmission environment? No * Has this patient been hospitalized within the prior 30 days at any hospital? No Coverage Notice Reviewer: [id number] Leslie Borrero Notice Issued Date-Time: 12/08/2019 17:34 Notice Type: Patient Choice Letter Notice Delivered To: Patient Relationship to Patient: Self Flower Grader Name: Nikolai Rogers Delivery Method: HAND - Hand Delivered Delmi Days: Prior Verbal Notification: Recipient Understood Notice: Yes Recipient Signature: Yes Med Rec Note Co-signed by Attending: Coverage Notice Comment: Patient choice for [facility] placed on the chart. Last DP export: 12/09/19 11:32 am Patient Name: NIKOLAI ROGERS Page [id number] at 1538 All edits/amendments must be made on the electronic document DICTATION DATE: 12/09/19 1537 REGISTRY NP: BRIDGETTE 12/09/19 1537 RPT#: [id number] DC DATE: STATUS: ADM IN [facility] [address] [place] [address] END OF REPORT
--- NOTE | 2019-12-09 15:56 | NUR ---
I have reviewed this patient and I concur with the Shift Assessment completed by the Licensed Practical Nurse today this shift.
--- NOTE | 2019-12-09 19:30 | NUR ---
PT UP IN CHAIR, AAO X 3, RESP EVEN AND UNLABORED. NO DISTRESS NOTED. CL IN REACH AT THIS TIME. NO WANTS OR CONCERNS NOTED.
[2019-12-09 21:11] VITALS: BP 174/88
[2019-12-10 00:32] VITALS: BP 176/89
[2019-12-10 04:08] LABS: BASOPHILS 0.4 % (0-2); EOSINOPHILS 4.9 % (0-7); HEMATOCRIT 35.7 % (42.0-54.0); HEMOGLOBIN 11.7 g/dL (13.5-17.5); IMMATURE GRANULOCYTES 0.4 % (0-5); LYMPHOCYTES 15.8 % (15-50); MCH 29.5 pg (26.0-34.0); MCHC 32.8 g/dL (31.0-37.0); MCV 89.9 fL (80.0-100.0); MEAN PLATELET VOLUME 10.5 fL (7.4-10.4); MONOCYTES 9.8 % (2-11); NEUTROPHILS 68.7 % (40-80); PLATELET COUNT 151 10x3/uL (130-400); RBC 3.97 10x6/uL (4.20-6.10); RDW 13.9 % (11.5-14.5); WBC 5.3 10x3/uL (4.8-10.8)
[2019-12-10 04:15] LABS: ANION GAP 10.4 mmol/L (8-16); CARBON DIOXIDE 26.3 mmol/L (21.0-32.0); CREATININE - SERUM 1.4 mg/dL (0.6-1.3); POTASSIUM - SERUM 3.7 mmol/L (3.5-5.1)
[2019-12-10 04:51] VITALS: BP 166/81
--- NOTE | 2019-12-10 08:52 | MORECARE ---
CASE MANAGEMENT DISCHARGE SUMMARY PATIENT: NIKOLAI ROGERS UNIT: [id number] ADM DATE: 12/01/19 AGE: 89 : [birth year] SEX: M ROOM/BED: D.2105 AUTHOR: GRECIA,DOC PHYSICIAN: REFERRING PHYSICIAN: JAMILA WALKER MD DATE OF SERVICE: 12/10/19 Discharge Plan Patient Name: NIKOLAI ROGERS Facility: [facility]:[place] : 1930 Planned Disposition: Correction Facility Anticipated Discharge Date: 12/12/19 Discharge Date: Expected LOS: 11 Initial Reviewer: [id number] Initial Review Date: 12/01/2019 Generated: 12/10/19 9:52 am Comments DCP- Discharge Planning Updated by [id number]: Triny Borrero on 12/09/19 2:[address] Marika Atkinson ([phone]) CM/DC discharge planner for [facility], called to inquire about DC plans for patient. CM made Marika aware that the patient has been accepted to The [facility] and will go into the facility on Friday. CM read the Gait training comments, for distances and assist to her. DCP- Discharge Planning Updated by [id number]: Triny Borrero on 12/09/19 11:[address] Additional information faxed to Iris Leo for [facility]. The patient will have to have a COVID test, since he had a temp of 102 upon admission. COVID testing has been ordered. Patient has been accepted clinically to the [facility], to a Medicare Skilled bed, on Friday. CB from Rebekah Arguello APN for [facility]. Per Rebekah, the patient is not service connected and the [place] probably will not cover for any Rehab services. CM request fax number for information to be faxed. Fx#[phone]. Faxed information to same. DCP- Discharge Planning Updated by [id number]: Triny Borrero on 12/08/19 4:[address] CM contacted patient's son-in-law, Irvin Segundo regarding the [facility] not accepting patient's due to the COVID crisis. Mr. Segundo states he doesn't listen to any voice mails on his phone, and was not aware. Explained the other options are HHS or a Skilled bed in a nursing facility. Per patient's son, he has been a client [facility] in the past and this where he would like for the patient to go. This was explained in detail to the patient and he has signed a [facility] Choice for [facility]. CM contacted Iris Leo to assist with finding a facility that will accept the patient. Required information has been faxed to Iris to [phone]. CM awaits the decision from [facility]. CM wroth down the name of [facility] and his son-in-law's phone number for the patient. DCP- Discharge Planning Updated by [id number]: Triny Borrero on 12/07/19 3:[address] 1618: CM left a VM with patient's son, Irvin Segundo, regarding additional placement options for this patient: HHS or Skilled in a nursing facility. Await CB. CM contacted Yoselyn, with [facility] regarding a one time contract with the [facility], per Y[place]elyn, the [place] routinely will not contract, but can use Medicare benefits, if the patient and son will agree. 1542: CM left a VM with Rebekah Arguello to inquire if the VA will contract with [facility] for this patient. Provided my phone number and await CB. Contacted by Rebekah Arguello APRN, with [facility] regarding transfer. Per Rebekah, the [facility] is not accepting patients to rehab at this time. States she cannot see where patient might need Rehab from her notes. TOR faxed required information to [phone], for the patient's chart. DCP- Discharge Planning Updated by [id number]: Triny Borrero on 12/06/19 12:[address] CM contacted the [facility] regarding patient's request to transfer there for Rehab. TOR spoke with Linsey, with the [facility], provided required information. Per Linsey, the [facility] requires a patient to go into a 14 day quarantine, be tested for COVID at the [facility], prior to going into rehab. TOR provided MD contact number for [facility]. Patient has been made aware of this and is in agreement. DCP- Discharge Planning Updated by [id number]: Triny Borrero on 12/06/19 11:[address] DC Plan: Rehab vs home. Patient chan not want to use his Medicare benefits, and he agrees to VA rehab if he can be accepted. CM will contact the [place]. CM notified Roseann, with [facility] of same. CM met with patient to discuss initial discharge planning. Patient is in agreement to proceed with the assessment. Patient reports that he lives at home independently with his S-I-L, Irvin Segundo, #[phone]. Patient is alert/oriented. Stairs/steps:0. PCP: [facility]. [place]Patient states he has been able to obtain all of her prescribed medications. HHS: No. DME: Walker, Shower chair. Patient gives permission to speak with family members. Patient is Independent with all ADL's, medication management SPRING TESTER. CM discussed the availability of HH, Rehab, SNF, OP Therapy, DME services. Patient agrees to Rehab, will attempt to find Rehab facility contracted with [place]. Patient denies hospitalization within the past 30 days. Patient denies the use of community resources [employer]ING TESTER. Transportation at time of discharge: Patient's son-in-law. Patient declines SNF stay, only wants Rehab inpatient. DCP- Discharge Planning Updated by [email or web address]: Triny Borrero on 12/03/19 4:[address] CM contacted patient's son Irvin Segundo @[phone], to verify if he/patient wants to stay at [facility] vs use of [facility]. Patient's son request that patient stay here at [facility] for treatment and rehab. Per Caprice, with [facility], they are unable to transfer until Friday due to the December 03 holiday. CB on Friday if needed. DCPIA - Discharge Planning Initial Assessment Updated by [id number]: Triny Borrero on 12/06/19 1:48 pm * Is the patient Alert and Oriented? Yes * How many steps to enter\exit or inside your home? * [place] * [place] * Preadmission Environment Home with Family * ADLs Independent * Equipment Rolling Walker Shower Chair * Other Equipment NA * List name and contact numbers for known caregivers / representatives who currently or will assist patient after discharge: Irvin Segundo [phone] * Verbal permission to speak to the caregivers and representatives has been obtained from the patient. Yes * Community resources currently utilized None * Please name any agencies selected above. [facility] * Additional services required to return to the preadmission environment? Yes * Can the patient safely return to the preadmission environment? No * Has this patient been hospitalized within the prior 30 days at any hospital? No Coverage Notice Reviewer: [id number] Leslie Borrero Notice Issued Date-Time: 12/08/2019 17:34 Notice Type: Patient Choice Letter Notice Delivered To: Patient Relationship to Patient: Self Stroboroma Operator Name: Nikolai Rogers Delivery Method: HAND - Hand Delivered Delmi Days: Prior Verbal Notification: Recipient Understood Notice: Yes Recipient Signature: Yes Med Rec Note Co-signed by Attending: Coverage Notice Comment: Patient choice for [facility] placed on the chart. Last DP export: 12/09/19 2:38 pm Patient Name: NIKOLAI ROGERS Page [id number] at 0852 All edits/amendments must be made on the electronic document DICTATION DATE: 12/10/19851 AUCTIONEER ART: BRIDGETTE 12/10/1952 RPT#: [id number] DC DATE: STATUS: ADM IN [facility] [address] [place] [address] END OF REPORT
[2019-12-10 09:00] VITALS: BP 163/80
[2019-12-10 11:00] VITALS: BP 157/52
--- NOTE | 2019-12-10 12:31 | NUR ---
UP IN CHAIR EATHING LUNCH. TELEMETRY SR 67. CALL LIGHT IN REACH. WILL CONT. PLAN OF CARE.
--- NOTE | 2019-12-10 12:43 | NUR ---
PT STATES HE CHOKES A LITTLE ON FOOD SOEMIMTES WHEN HE SWALLOWS. WHEN IN ROOM PT TOOK A LARGE BITE AND STARTED CHEWING REALLY FAST AND SWALLOWED. STATED TO PT TO TAKE SMALLER BITES AND TO MAKE SURE HE CHEWS FOOD COMPLETELY. I ASLO STATED I WILL SEE ABOUT CONSULTING SPEECH THERAPY. PT VERBALIZED UNDERSTANDING. SPOKE WITH DR. ARAUZ AND HE SATTED TO PLACE A SPEECH THERAPY CONSULT.
--- NOTE | 2019-12-10 13:48 | NUR ---
I have reviewed this patient and I concur with the Shift Assessment completed by the Licensed Practical Nurse today this shift.
--- NOTE | 2019-12-10 14:02 | NUR ---
OT NOTE: PT COMPLETED SIT TO STAND WITH SBA. PT COMPLETED ADL MOB WITH RW REQUIRED SBA. PT COMPLETED HAND AND FACE HYGIENE AT SINK LEVEL WITH SBA. PT VERY COOPERATIVE. 4-800 THANK YOU,AMANDA ROMERO
[2019-12-10 15:00] VITALS: BP 171/80
--- NOTE | 2019-12-10 16:13 | MORECARE ---
CASE MANAGEMENT DISCHARGE SUMMARY PATIENT: GUSTABO ROGERS UNIT: [id number] ADM DATE: 12/01/19 AGE: 89 : [birth year] SEX: M ROOM/BED: D.2106 AUTHOR: GRECIA,DOC PHYSICIAN: REFERRING PHYSICIAN: JAMILA WALKER MD DATE OF SERVICE: 12/10/19 Discharge Plan Patient Name: GUSTABO ROGERS Facility: [facility]:[place] : 1930 Planned Disposition: Detention Facility Anticipated Discharge Date: 12/12/19 Discharge Date: Expected LOS: 11 Initial Reviewer: [id number] Initial Review Date: 12/01/2019 Generated: 12/10/19 5:13 pm Comments DCP- Discharge Planning Updated by [email or web address]: Triny Borrero on 12/10/19 3:[address] [facility] cannot accept patient until Thursday 12/14. DCP- Discharge Planning Updated by [id number]: Triny Borrero on 12/09/19 2:[address] Marika Atkinson ([phone]) CM/DC estate planner for [facility], called to inquire about DC plans for patient. CM made Marika aware that the patient has been accepted to The [facility] and will go into the facility on Friday. CM read the Gait training comments, for distances and assist to her. DCP- Discharge Planning Updated by [email or web address]: Triny Borrero on 12/09/19 11:[address] Additional information faxed to Iris Leo for [facility]. The patient will have to have a COVID test, since he had a temp of 102 upon admission. COVID testing has been ordered. Patient has been accepted clinically to the [facility], to a Medicare Skilled bed, on Friday. CB from Rebekah Arguello APN for [facility]. Per Rebekah, the patient is not service connected and the [place] probably will not cover for any Rehab services. CM request fax number for information to be faxed. Fx#[phone]. Faxed information to same. DCP- Discharge Planning Updated by [email or web address]: Triny Borrero on 12/08/19 4:[address] CM contacted patient's son-in-law, Irvin Segundo regarding the [facility] not accepting patient's due to the COVID crisis. Mr. Segundo states he doesn't listen to any voice mails on his phone, and was not aware. Explained the other options are HHS or a Skilled bed in a nursing facility. Per patient's son, he has been a client with [facility] in the past and this where he would like for the patient to go. This was explained in detail to the patient and he has signed a Patient Choice for [facility]. CM contacted Iris Leo to assist with finding a facility that will accept the patient. Required information has been faxed to Iris to [phone]. CM awaits the decision from [facility]. CM wroth down the name of [facility] and his son-in-law's phone number for the patient. DCP- Discharge Planning Updated by [id number]: Triny Borrero on 12/07/19 3:[address] 1618: CM left a VM with patient's son, Irvin Segundo, regarding additional placement options for this patient: HHS or Skilled in a nursing facility. Await CB. CM contacted Yoselyn, with [facility] regarding a one time contract with the [facility], per Yoselyn, the [facility] routinely will not contract, but can use Medicare benefits, if the patient and son will agree. 1542: CM left a VM with Rebekah Arguello to inquire if the [facility] will contract with [facility] for this patient. Provided my phone number and await CB. Contacted by Rebekah Arguello STRUCTURAL IRON WORKER, with [facility] regarding transfer. Per Rebekah, the [facility] is not accepting patients to rehab at this time. States she cannot see where patient might need Rehab from her notes. CM faxed required information to [phone], for the patient's chart. DCP- Discharge Planning Updated by [id number]: Triny Borrero on 12/06/19 12:[address] CM contacted the [facility] regarding patient's request to transfer there for Rehab. CM spoke with Linsey, with the [facility], provided required information. Per Linsey, the [facility] requires a patient to go into a 14 day quarantine, be tested for COVID at the [facility], prior to going into rehab. TOR provided MD contact number for [facility]. Patient has been made aware of this and is in agreement. DCP- Discharge Planning Updated by [id number]: Triny Blackmonlroy on 12/06/19 11:[address] DC Plan: Rehab vs home. Patient chan not want to use his Medicare benefits, and he agrees to VA rehab if he can be accepted. CM will contact the [place]. CM notified Roseann, with [facility] of same. CM met with patient to discuss initial discharge planning. Patient is in agreement to proceed with the assessment. Patient reports that he lives at home independently with his S-I-L, Irvin Segundo, #[phone]. Patient is alert/oriented. Stairs/steps:0. PCP: [facility]ARR[facility]. [facility]acy: [facility].Patient states he has been able to obtain all of her prescribed medications. HHS: No. DME: Walker, Shower chair. Patient gives permission to speak with family members. Patient is Independent with all ADL's, medication management OUTSIDE SALES. CM discussed the availability of HH, Rehab, SNF, OP Therapy, DME services. Patient agrees to Rehab, will attempt to find Rehab facility contracted with [facility]. Patient denies hospitalization within the past 30 days. Patient denies the use of community resources [employer]SIDE SALES. Transportation at time of discharge: Patient's son-in-law. Patient declines SNF stay, only wants Rehab inpatient. DCP- Discharge Planning Updated by [id number]: Triny Blackmonlroy on 12/03/19 4:[address] CM contacted patient's son Irvin Segundo @[phone], to verify if he/patient wants to stay at [facility] vs use of [facility]. Patient's son request that patient stay here at [facility] for treatment and rehab. Per Caprice, with [facility], they are unable to transfer until Friday due to the December 03 holiday. CB on Friday if needed. DCPIA - Discharge Planning Initial Assessment Updated by [id number]: Trinymichael Borrero on 12/06/19 1:48 pm * Is the patient Alert and Oriented? Yes * How many steps to enter\exit or inside your home? * [facility] * [facility] * Preadmission Environment Home with Family * ADLs Independent * Equipment Rolling Walker Shower Chair * Other Equipment NA * List name and contact numbers for known caregivers / representatives who currently or will assist patient after discharge: Irvin Segundo [phone] * Verbal permission to speak to the caregivers and representatives has been obtained from the patient. Yes * Community resources currently utilized None * Please name any agencies selected above. [facility] * Additional services required to return to the preadmission environment? Yes * Can the patient safely return to the preadmission environment? No * Has this patient been hospitalized within the prior 30 days at any hospital? No Coverage Notice Reviewer: [id number] Leslie Borrero Notice Issued Date-Time: 12/08/2019 17:34 Notice Type: Patient Choice Letter Notice Delivered To: Patient Relationship to Patient: Self Senior Technical Business Analyst Name: Gustabo Rogers Delivery Method: HAND - Hand Delivered Delmi Days: Prior Verbal Notification: Recipient Understood Notice: Yes Recipient Signature: Yes Med Rec Note Co-signed by Attending: Coverage Notice Comment: Patient choice for [facility] placed on the chart. Last DP export: 12/10/19 7:52 a Patient Name: GUSTABO ROGERS Page 44098 at 1613 All edits/amendments must be made on the electronic document DICTATION DATE: 12/10/19 161 FOLDER STITCHER OPERATOR: BRIDGETTE 12/10/19 161 RPT#: [id number] DC DATE: STATUS: ADM IN [facility] [address] [place] [address] END OF REPORT
--- NOTE | 2019-12-10 17:32 | MORECARE ---
CASE MANAGEMENT DISCHARGE SUMMARY PATIENT: GUSTABO ROGERS UNIT: [id number] ADM DATE: 12/01/19 AGE: 89 : [birth year] SEX: M ROOM/BED: D.2100 AUTHOR: GRECIA,DOC PHYSICIAN: REFERRING PHYSICIAN: JAMILA WALKER MD DATE OF SERVICE: 12/10/19 Discharge Plan Patient Name: GUSTABO ROGERS Facility: [facility]:[place] : 1930 Planned Disposition: Penitentiary Facility Anticipated Discharge Date: 12/12/19 Discharge Date: Expected LOS: 11 Initial Reviewer: [email or web address] Initial Review Date: 12/01/2019 Generated: 12/10/19 6:31 pm Comments DCP- Discharge Planning Updated by [id number]: Triny Borrero on 12/10/19 4:[address] [facility] cannot accept patient until Thursday 12/14. Per Rebekah, with [facility], the patient does not meet criteria for inpatient rehab. Informed her of other plans in progress. DCP- Discharge Planning Updated by [id number]: Triny Borrero on 12/09/19 2:[address] Marika Atkinson ([phone]) CM/DC marine air ground task force planners for [facility], called to inquire about DC plans for patient. CM made Marika aware that the patient has been accepted to [facility] and will go into the facility on Friday. CM read the Gait training comments, for distances and assist to her. DCP- Discharge Planning Updated by [id number]: Triny Borrero on 12/09/19 11:[address] Additional information faxed to Iris Leo for [facility]. The patient will have to have a COVID test, since he had a temp of 102 upon admission. COVID testing has been ordered. Patient has been accepted clinically to the [facility], to a Medicare Skilled bed, on Friday. CB from Rebekah Arguello APN for [facility]. Per Rebekah, the patient is not service connected and the [place] probably will not cover for any Rehab services. CM request fax number for information to be faxed. Fx#[phone]. Faxed information to same. DCP- Discharge Planning Updated by [id number]: Triny Adair on 12/08/19 4:[address] CM contacted patient's son-in-law, Irvin Segundo regarding the [facility] not accepting patient's due to the COVID crisis. Mr. Segundo states he doesn't listen to any voice mails on his phone, and was not aware. Explained the other options are HHS or a Skilled bed in a nursing facility. Per patient's son, he has been a client with [facility], in the past and this where he would like for the patient to go. This was explained in detail to the patient and he has signed a Patient Choice for the [facility] [facility]. CM contacted Iris Leo to assist with finding a facility that will accept the patient. Required information has been faxed to Iris to [phone]. CM awaits the decision from [facility]. CM wroth down the name of [facility] and his son-in-law's phone number for the patient. DCP- Discharge Planning Updated by [id number]: Triny Borrero on 12/07/19 3:[address] 1618: CM left a VM with patient's son, Irvin Segundo, regarding additional placement options for this patient: HHS or Skilled in a nursing facility. Await CB. CM contacted Yoselyn, with [facility] regarding a one time contract with the [facility], per Yoselyn, the VA routinely will not contract, but can use Medicare benefits, if the patient and son will agree. 1542: CM left a VM with Rebekah Arguello to inquire if the VA will contract with [facility] for this patient. Provided my phone number and await CB. Contacted by Rebekah Arguello PNEUMATIC DRUM SANDER, with [facility] regarding transfer. Per Rebekah, the VA is not accepting patients to rehab at this time. States she cannot see where patient might need Rehab from her notes. CM faxed required information to [phone], for the patient's chart. DCP- Discharge Planning Updated by [id number]: Triny Borrero on 12/06/19 12:[address] CM contacted the [facility] regarding patient's request to transfer there for Rehab. CM spoke with Linsey, with the [facility], provided required information. Per Linsey, the VA requires a patient to go into a 14 day quarantine, be tested for COVID at the [facility], prior to going into rehab. TOR provided MD contact number for [facility]. Patient has been made aware of this and is in agreement. DCP- Discharge Planning Updated by [id number]: Trinymichael Borrero on 12/06/19 11:[address] DC Plan: Rehab vs home. Patient chan not want to use his Medicare benefits, and he agrees to VA rehab if he can be accepted. CM will contact the [place]. CM notified Roseann, with [facility] of same. CM met with patient to discuss initial discharge planning. Patient is in agreement to proceed with the assessment. Patient reports that he lives at home independently with his S-I-L, Irvin Segundo, #[phone]. Patient is alert/oriented. Stairs/steps:0. PCP: [facility] CARR[facility]. [place]Patient states he has been able to obtain all of her prescribed medications. HHS: No. DME: Walker, Shower chair. Patient gives permission to speak with family members. 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 CM discussed the availability of HH, Rehab, SNF, OP Therapy, DME services. Patient agrees to Rehab, will attempt to find Rehab facility contracted with [place]. Patient denies hospitalization within the past 30 days. 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 Transportation at time of discharge: Patient's son-in-law. Patient declines SNF stay, only wants Rehab inpatient. DCP- Discharge Planning Updated by [id number]: Triny Borrero on 12/03/19 4:[address] CM contacted patient's son Irvin Segundo @[phone], to verify if he/patient wants to stay at [facility] vs use of [facility]. Patient's son request that patient stay here at [facility] for treatment and rehab. Per Caprice, with [facility], they are unable to transfer until Friday due to the December 03 holiday. CB on Friday if needed. DCPIA - Discharge Planning Initial Assessment Updated by [id number]: Triny Borrero on 12/06/19 1:48 pm * Is the patient Alert and Oriented? Yes * How many steps to enter\exit or inside your home? * PCP [facility] * Pharmacy [facility] * Preadmission Environment Home with Family * ADLs Independent * Equipment Rolling Walker Shower Chair * Other Equipment NA * List name and contact numbers for known caregivers / representatives who currently or will assist patient after discharge: Irvin Segundo [phone] * Verbal permission to speak to the caregivers and representatives has been obtained from the patient. Yes * Community resources currently utilized None * Please name any agencies selected above. [facility] * Additional services required to return to the preadmission environment? Yes * Can the patient safely return to the preadmission environment? No * Has this patient been hospitalized within the prior 30 days at any hospital? No Coverage Notice Reviewer: [id number] Leslie Borrero Notice Issued Date-Time: 12/08/2019 17:34 Notice Type: Patient Choice Letter Notice Delivered To: Patient Relationship to Patient: Self Warpman Name: Gustabo Rogers Delivery Method: HAND - Hand Delivered Delmi Days: Prior Verbal Notification: Recipient Understood Notice: Yes Recipient Signature: Yes Med Rec Note Co-signed by Attending: Coverage Notice Comment: Patient choice for [facility] placed on the chart. Last DP export: 12/10/19 3:13 p Patient Name: GUSTABO ROGERS Page [id number] at 1732 All edits/amendments must be made on the electronic document DICTATION DATE: 12/10/191730 EDUCATION OFFICER: BRIDGETTE 12/10/191730 RPT#: [id number] DC DATE: STATUS: ADM IN [address] [place] [address] END OF REPORT
--- NOTE | 2019-12-10 19:13 | NUR ---
RECIEVED SITTING UP ON SIDE OF BED. ALERT AND ORIENTED X4. UP AD JAME WITH WALKER. NOT WEARING O2@ THIS TIME. IV TO RT AC SL. INCONT OF URINE AND WEARS BRIEFS. CHANGES BRIEFS HIMSELF. CONT TO HAVE PITTING EDEMA TO LOWER EXTREMITIES. DENIES ANY NEESD AT THIS TIME.
[2019-12-10 20:00] VITALS: BP 164/83
[2019-12-11 04:00] VITALS: BP 159/83
[2019-12-11 09:00] VITALS: BP 149/107
[2019-12-11 09:11] LABS: HEMATOCRIT 37.2 % (42.0-54.0); HEMOGLOBIN 12.4 g/dL (13.5-17.5); LYMPHOCYTES 14.8 % (15-50); MCHC 33.3 g/dL (31.0-37.0); MCV 90.1 fL (80.0-100.0); MEAN PLATELET VOLUME 9.1 fL (7.4-10.4); RBC 4.13 10x6/uL (4.20-6.10); RDW 14.4 % (11.5-14.5); WBC 5.3 10x3/uL (4.8-10.8)
[2019-12-11 09:20] LABS: ANION GAP 8.3 mmol/L (8-16); CARBON DIOXIDE 30.4 mmol/L (21.0-32.0); CREATININE - SERUM 1.4 mg/dL (0.6-1.3); POTASSIUM - SERUM 3.7 mmol/L (3.5-5.1)
[2019-12-11 09:31] LABS: PLATELET COUNT 183 10x3/uL (130-400)
--- NOTE | 2019-12-11 13:21 | NUR ---
PT AWAKE AND ORIENTED, HAS HAD NO DIFFICULTIES THUS FAR TODA. HAS BEEN UP WITHOUT ASSISTANCE, WALKER ONLY. NO COMPLAINTS OR CONCERNS A TTHIS ITME. CL IN REACH, SRX2.
--- NOTE | 2019-12-11 19:09 | NUR ---
RECIEVED SITTING UP ON SIDE OF BED WITH TV ON. ALERT AND ORIENTED X4. UP AD JAME WITH WALKER. NOT WEARING O2 AT THIS TIME. IV TO RT AC SL. TELEMETRY IN PLACE. INCONT OF BLADDER. WEARS BRIEFS AND CHANGES THEM HIMSEF. CONT TO HAVE PITTING EDEMA TO LOWER EXTREMITIES. DENIES ANY NEEDS AT THIS TIME.
[2019-12-11 20:28] VITALS: BP 160/79
[2019-12-12 05:00] VITALS: BP 143/78
[2019-12-12 05:30] LABS: HEMATOCRIT 35.3 % (42.0-54.0); HEMOGLOBIN 11.7 g/dL (13.5-17.5); LYMPHOCYTES 16.6 % (15-50); MCHC 33.1 g/dL (31.0-37.0); MCV 90.5 fL (80.0-100.0); MEAN PLATELET VOLUME 9.9 fL (7.4-10.4); NEUTROPHILS 69.3 % (40-80); PLATELET COUNT 167 10x3/uL (130-400); RDW 14.7 % (11.5-14.5); WBC 5.9 10x3/uL (4.8-10.8)
[2019-12-12 05:43] LABS: ANION GAP 11.2 mmol/L (8-16); CARBON DIOXIDE 26.4 mmol/L (21.0-32.0); CREATININE - SERUM 1.4 mg/dL (0.6-1.3); POTASSIUM - SERUM 3.6 mmol/L (3.5-5.1)
[2019-12-12 10:06] VITALS: BP 160/75
--- NOTE | 2019-12-12 14:06 | NUR ---
I have reviewed this patient and I concur with the Shift Assessment completed by the Licensed Practical Nurse today this shift.
--- NOTE | 2019-12-12 14:32 | NUR ---
PT HAS BEEN ALERT AND ORIENTED, AMBULATING SELF IN ROOM WITHOUT DIFFICULTY, USING WALKER APPROPRIATELY. NO COMPLAINTS OR CONCERNS, ALL QUESTIONS ANSWERED TO THE BEST OF MY ABILITY. NO VISITORS THROUGHOUT THE DAY. CL IN REACH, SRX2.
--- NOTE | 2019-12-12 17:31 | NUR ---
PT ALERT AND ORIENTED, VISITOR AT BEDSIDE. NO COMPLAINTS OR CONCERNS AT HTIS TIME. CL IN REACH, SRX2.
[2019-12-12 18:06] VITALS: BP 161/82
--- NOTE | 2019-12-12 19:36 | NUR ---
RECIEVED SITTING UP IN CHAIR. ALERT AND ORIENTED X4. UP AD JAME WITH A WALKER. IV TO RT AC SL. TELEMETRY IN PLACE. INCONT OF BLADDER AND WEARS BRIEFS. CHANGES HIS OWN BRIEFS. HAS ACCIDENTS IN FLOOR AND REFUSES TO CALL FOR ASSIST. DENIES ANY NEEDS AT THIS TIME.
[2019-12-12 21:30] VITALS: BP 150/74
[2019-12-13 04:29] VITALS: BP 157/72
[2019-12-13 05:13] LABS: BASOPHILS 0.5 % (0-2); EOSINOPHILS 5.2 % (0-7); HEMATOCRIT 36.7 % (42.0-54.0); IMMATURE GRANULOCYTES 0.2 % (0-5); LYMPHOCYTES 16.8 % (15-50); MCH 29.7 pg (26.0-34.0); MCHC 32.7 g/dL (31.0-37.0); MCV 90.8 fL (80.0-100.0); MEAN PLATELET VOLUME 10.1 fL (7.4-10.4); MONOCYTES 8.1 % (2-11); NEUTROPHILS 69.2 % (40-80); PLATELET COUNT 161 10x3/uL (130-400); RBC 4.04 10x6/uL (4.20-6.10); RDW 14.3 % (11.5-14.5); WBC 6.3 10x3/uL (4.8-10.8)
[2019-12-13 05:33] LABS: ANION GAP 11.1 mmol/L (8-16); CARBON DIOXIDE 27.9 mmol/L (21.0-32.0); CREATININE - SERUM 1.3 mg/dL (0.6-1.3)
[2019-12-13 09:00] VITALS: BP 152/75
--- NOTE | 2019-12-13 09:21 | NUR ---
PT AWAKE AND ORIENTED, TOOK MEDICATIONS WITHOUT COMPLICATIONS. DRESSED STATING HE'S READY TO GO TODAY. NO COMPLAINTS OR CONCERNS A TTHIS TIME. CL IN REACH, SRX2.
[2019-12-13 12:00] VITALS: BP 152/75
--- NOTE | 2019-12-13 12:32 | MORECARE ---
CASE MANAGEMENT DISCHARGE SUMMARY PATIENT: NIKOLAI ROGERS UNIT: [id number] ADM DATE: 12/01/19 AGE: 89 : [birth year] SEX: M ROOM/BED: D.2100 AUTHOR: GRECIA,DOC PHYSICIAN: REFERRING PHYSICIAN: JAMILA WALKER MD DATE OF SERVICE: 12/13/19 Discharge Plan Patient Name: NIKOLAI ROGERS Facility: [facility]:[place] : 1930 Planned Disposition: Snf Facility Anticipated Discharge Date: 12/12/19 Discharge Date: Expected LOS: 11 Initial Reviewer: [email or web address] Initial Review Date: 12/01/2019 Generated: 12/13/19 1:31 pm Comments DCP- Discharge Planning Updated by [email or web address]: Triny Borrero on 12/13/19 11:[address] Per Iris, patient has been accepted to [facility] today, to room 104S. faxed the COVID test also. DCP- Discharge Planning Updated by [id number]: Triny Borrero on 12/10/19 4:[address] [facility] cannot accept patient until Thursday 12/14. Per Rebekah, with [facility], the patient does not meet criteria for inpatient rehab. Informed her of other plans in progress. DCP- Discharge Planning Updated by [id number]: Triny Borrero on 12/09/19 2:[address] Marika Atkinson ([phone]) CM/DC kit planner for [facility], called to inquire about DC plans for patient. CM made Marika aware that [facility]. CM read the Gait training comments, for distances and assist to her. DCP- Discharge Planning Updated by [id number]: Triny Borrero on 12/09/19 11:[address] Additional information faxed to Iris Leo for [facility]. The patient will have to have a COVID test, since he had a temp of 102 upon admission. COVID testing has been ordered. Patient has been accepted clinically to the [facility], to a Medicare Skilled bed, on Friday. CB from Rebekah Arguello APN for [facility]. Per Rebekah, the patient is not service connected and the [facility] probably will not cover for any Rehab services. CM request fax number for information to be faxed. Fx#[phone]. Faxed information to same. DCP- Discharge Planning Updated by [id number]: Triny Borrero on 12/08/19 4:[address] CM contacted patient's son-in-law, Irvin Segundo regarding the [facility] not accepting patient's due to the COVID crisis. Mr. Segundo states he doesn't listen to any voice mails on his phone, and was not aware. Explained the other options are HHS or a Skilled bed in a nursing facility. Per patient's son, he has [facility] and this where he would like for the patient to go. This was explained in detail to the patient and he has signed a Patient Choice for [facility]. CM contacted [facility] Felip[facility] to assist with finding a facility that will accept the patient. Required information has been faxed to Iris to [phone]. CM awaits the decision from [facility]. CM wroth down the name of [facility] and his son-in-law's phone number for the patient. DCP- Discharge Planning Updated by [id number]: Triny Borrero on 12/07/19 3:[address] 1618: CM left a VM with patient's son, Irvin Segundo, regarding additional placement options for this patient: HHS or Skilled in a nursing facility. Await CB. CM contacted Yoselyn, with [facility] regarding a one time contract with the [facility], per Yoselyn, the VA routinely will not contract, but can use Medicare benefits, if the patient and son will agree. 1542: CM left a VM with Rebekah Arguello to inquire if the VA will contract with [facility] for this patient. Provided my phone number and await CB. Contacted by Rebekah Arguello SENIOR SALES OPERATIONS ANALYST, with [facility] regarding transfer. Per Rebekah, the [facility] is not accepting patients to rehab at this time. States she cannot see where patient might need Rehab from her notes. CM faxed required information to [phone], for the patient's chart. DCP- Discharge Planning Updated by [id number]: Triny Adair on 12/06/19 12:[address] CM contacted the [facility] regarding patient's request to transfer there for Rehab. CM spoke with Linsey, with the [facility], provided required information. Per Linsey, the VA requires a patient to go into a 14 day quarantine, be tested for COVID at the [facility], prior to going into rehab. CM provided MD contact number for [facility]. Patient has been made aware of this and is in agreement. DCP- Discharge Planning Updated by [id number]: Triny Adair on 12/06/19 11:[address] DC Plan: Rehab vs home. Patient chan not want to use his Medicare benefits, and he agrees to VA rehab if he can be accepted. CM will contact the [facility]. CM notified Roseann, with [facility] of same. CM met with patient to discuss initial discharge planning. Patient is in agreement to proceed with the assessment. Patient reports that he lives at home independently with his S-I-L, Irvin Segundo, #[phone]. Patient is alert/oriented. Stairs/steps:0. PCP: [facility] CARRASCO. Pharmacy: [facility].Patient states he has been able to obtain all of her prescribed medications. HHS: No. DME: Walker, Shower chair. Patient gives permission to speak with family members. 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 CM discussed the availability of HH, Rehab, SNF, OP Therapy, DME services. Patient agrees to Rehab, will attempt to find Rehab facility contracted with [facility]. Patient denies hospitalization within the past 30 days. Patient denies the use of community resources IMPLEMENTATION ENGINEER. Transportation at time of discharge: Patient's son-in-law. Patient declines SNF stay, only wants Rehab inpatient. DCP- Discharge Planning Updated by [id number]: Triny Blackmonlroy on 12/03/19 4:[address] CM contacted patient's son Irvin Segundo @[phone], to verify if he/patient wants to stay at [facility] vs [facility] of [facility]. Patient's son request that patient stay here at [facility] for treatment and rehab. Per Caprice, with [facility], they are unable to transfer until Friday due to the December 03 holiday. CB on Friday if needed. DCPIA - Discharge Planning Initial Assessment Updated by [id number]: Triny Borrero on 12/06/19 1:48 pm * Is the patient Alert and Oriented? Yes * How many steps to enter\exit or inside your home? * PCP [facility] * Pharmacy [facility] * Preadmission Environment Home with Family * ADLs Independent * Equipment Rolling Walker Shower Chair * Other Equipment NA * List name and contact numbers for known caregivers / representatives who currently or will assist patient after discharge: Irvin Segundo [phone] * Verbal permission to speak to the caregivers and representatives has been obtained from the patient. Yes * Community resources currently utilized None * Please name any agencies selected above. [facility] * Additional services required to return to the preadmission environment? Yes * Can the patient safely return to the preadmission environment? No * Has this patient been hospitalized within the prior 30 days at any hospital? No Coverage Notice Reviewer: [id number] - Triny Borrero Notice Issued Date-Time: 12/08/2019 17:34 Notice Type: Patient Choice Letter Notice Delivered To: Patient Relationship to Patient: Self Brake Operator Name: Nikolai Rogers Delivery Method: HAND - Hand Delivered Delmi Days: Prior Verbal Notification: Recipient Understood Notice: Yes Recipient Signature: Yes Med Rec Note Co-signed by Attending: Coverage Notice Comment: Patient choice for [facility] placed on the chart. Last DP export: 12/10/19 4:32 p Patient Name: NIKOLAI ROGERS Page [id number] at 1232 All edits/amendments must be made on the electronic document DICTATION DATE: 12/13/19 1231 INTEGRATION CONSULTANT: BRIDGETTE 12/13/19 1231 RPT#: [id number] DC DATE: STATUS: ADM IN [facility] [address] [place] [address] END OF REPORT
--- NOTE | 2019-12-13 12:40 | MORECARE ---
CASE MANAGEMENT DISCHARGE SUMMARY PATIENT: NIKOLAI ROGERS UNIT: [id number] ADM DATE: 12/01/19 AGE: 89 : [birth year] SEX: M ROOM/BED: D.2106 AUTHOR: GRECIA,DOC PHYSICIAN: REFERRING PHYSICIAN: JAMILA WALKER MD DATE OF SERVICE: 12/13/19 Discharge Plan Patient Name: NIKOLAI ROGERS Facility: [facility]:[place] : 1930 Planned Disposition: Jail Facility Anticipated Discharge Date: 12/12/19 Discharge Date: Expected LOS: 11 Initial Reviewer: [email or web address] Initial Review Date: 12/01/2019 Generated: 12/13/19 1:39 pm Comments DCP- Discharge Planning Updated by [email or web address]: Triny Borrero on 12/13/19 11:[address] Per Iris, patient has been accepted to [facility] today, to room 104S. faxed the COVID test also. Faxed BC results. Iris will contact with transportation time. DCP- Discharge Planning Updated by [id number]: Triny Borrero on 12/10/19 4:[address] [facility] cannot accept patient until Thursday 12/14. Per Rebekah, with [facility], the patient does not meet criteria for inpatient rehab. Informed her of other plans in progress. DCP- Discharge Planning Updated by [id number]: Triny Borrero on 12/09/19 2:[address] Marika Atkinson ([phone]) CM/DC digital sales planner for [facility], called to inquire about DC plans for patient. CM made Marika aware that the patient has been accepted to [facility] and will go into the facility on Friday. CM read the Gait training comments, for distances and assist to her. DCP- Discharge Planning Updated by [id number]: Triny Borrero on 12/09/19 11:[address] Additional information faxed to Iris Leo for [facility]. The patient will have to have a COVID test, since he had a temp of 102 upon admission. COVID testing has been ordered. Patient has been accepted clinically to the [facility], to a Medicare Skilled bed, on Friday. CB from Rebekah Arguello APN for [facility]. Per Rebekah, the patient is not service connected and the VA probably will not cover for any Rehab services. CM request fax number for information to be faxed. Fx#[phone]. Faxed information to same. DCP- Discharge Planning Updated by [id number]: Triny Borrero on 12/08/19 4:[address] CM contacted patient's son-in-law, Irvin Segundo regarding the [facility] not accepting patient's due to the COVID crisis. Mr. Segundo states he doesn't listen to any voice mails on his phone, and was not aware. Explained the other options are HHS or a Skilled bed in a nursing facility. Per patient's son, he has been a client with [facility] in the past and this where he would like for the patient to go. This was explained in detail to the patient and he has signed a Patient Choice for [facility]. CM contacted Iris Leo to assist with finding a facility that will accept the patient. Required information has been faxed to Iris to [phone]. CM awaits the decision from [facility]. CM wroth down the name of [facility] and his son-in-law's phone number for the patient. DCP- Discharge Planning Updated by [id number]: Triny Borrero on 12/07/19 3:[address] 1618: CM left a VM with patient's son, Irvin Segundo, regarding additional placement options for this patient: HHS or Skilled in a nursing facility. Await CB. CM contacted Yoselyn, with [facility] regarding a one time contract with the [facility], per Yoselyn, the VA routinely will not contract, but can use Medicare benefits, if the patient and son will agree. 1542: CM left a VM with Rebekah Arguello to inquire if the VA will contract with [facility] for this patient. Provided my phone number and await CB. Contacted by Rebekah Arguello APRN, with [facility] regarding transfer. Per Rebekah, the [facility] is not accepting patients to rehab at this time. States she cannot see where patient might need Rehab from her notes. CM faxed required information to [phone], for the patient's chart. DCP- Discharge Planning Updated by [email or web address]: Triny Adair on 12/06/19 12:[address] CM contacted the [facility] regarding patient's request to transfer there for Rehab. CM spoke with Linsey, with the [facility], provided required information. Per Linsey, the VA requires a patient to go into a 14 day quarantine, be tested for COVID at the VA, prior to going into rehab. CM provided MD contact number for [facility]. Patient has been made aware of this and is in agreement. DCP- Discharge Planning Updated by [id number]: Trinymichael Borrero on 12/06/19 11:[address] DC Plan: Rehab vs home. Patient chan not want to use his Medicare benefits, and he agrees to [facility] if he can be accepted. CM will contact the [facility]. CM notified Roseann, with [facility] of same. CM met with patient to discuss initial discharge planning. Patient is in agreement to proceed with the assessment. Patient reports that he lives at home independently with his S-I-L, Irvin Segundo, #[phone]. Patient is alert/oriented. Stairs/steps:0. PCP: YASMIN CARRASCO. Pharmacy: [facility].Patient states he has been able to obtain all of her prescribed medications. HHS: No. DME: Walker, Shower chair. Patient gives permission to speak with family members. Patient is Independent with all ADL's, medication management COMMUNITY RELATIONS REPRESENTATIVE. CM discussed the availability of HH, Rehab, SNF, OP Therapy, DME services. Patient agrees to Rehab, will attempt to find Rehab facility contracted with [facility]. Patient denies hospitalization within the past 30 days. Patient denies the use of community resources COMMUNITY RELATIONS REPRESENTATIVE. Transportation at time of discharge: Patient's son-in-law. Patient declines SNF stay, only wants Rehab inpatient. DCP- Discharge Planning Updated by [id number]: Triny Blackmonlroy on 12/03/19 4:[address] CM contacted patient's son Irvin Segundo @[phone], to verify if he/patient wants to stay at [facility] of [facility]. Patient's son request that patient stay here at [facility] for treatment and rehab. Per Caprice, with [facility], they are unable to transfer until Friday due to the December 03. CB on Friday if needed. DCPIA - Discharge Planning Initial Assessment Updated by [id number]: Triny Borrero on 12/06/19 1:48 pm * Is the patient Alert and Oriented? Yes * How many steps to enter\exit or inside your home? * PCP [facility] MD * Pharmacy [facility] * Preadmission Environment Home with Family * ADLs Independent * Equipment Rolling Walker Shower Chair * Other Equipment NA * List name and contact numbers for known caregivers / representatives who currently or will assist patient after discharge: Irvin Segundo [phone] * Verbal permission to speak to the caregivers and representatives has been obtained from the patient. Yes * Community resources currently utilized None * Please name any agencies selected above. [facility] * Additional services required to return to the preadmission environment? Yes * Can the patient safely return to the preadmission environment? No * Has this patient been hospitalized within the prior 30 days at any hospital? No Coverage Notice Reviewer: [id number] - Triny Borrero Notice Issued Date-Time: 12/08/2019 17:34 Notice Type: Patient Choice Letter Notice Delivered To: Patient Relationship to Patient: Self Resource Room Special Education Teacher Name: Nikolai Rogers Delivery Method: HAND - Hand Delivered Delmi Days: Prior Verbal Notification: Recipient Understood Notice: Yes Recipient Signature: Yes Med Rec Note Co-signed by Attending: Coverage Notice Comment: Patient choice for [facility] placed on the chart. Last DP export: 12/13/19 11:32 a Patient Name: NIKOLAI ROGERS Page [id number] at 1240 All edits/amendments must be made on the electronic document DICTATION DATE: 12/13/19 1240 AIRPLANE PILOT CHIEF: BRIDGETTE 12/13/19 1240 RPT#: [id number] DC DATE: STATUS: ADM IN [facility] [address] [facility] [place] [address] END OF REPORT
--- NOTE | 2019-12-13 13:09 | NUR ---
Nutrition Follow-up: Eating well. Noted plans to d/c to [facility] today. Diet: Regular PO intake: 100% x last 4 meals Wt: 245.3# (12/09); 242.2# (12/07) Labs noted: Ca 8.0 Meds noted: Protonix, electrolyte protocol -Monitor wt; noted daily wts ordered. -RD following.
--- NOTE | 2019-12-13 13:14 | NUR ---
CALLED REPORT TO ROGERIO HAYES AT THE [facility]. WAITING ON VAN TRANSPORTATION. CL IN REACH, [id number].
--- NOTE | 2019-12-13 13:30 | MORECARE ---
CASE MANAGEMENT DISCHARGE SUMMARY PATIENT: NIKOLAI ROGERS UNIT: [id number] ADM DATE: 12/01/19 AGE: 89 : [birth year] SEX: M ROOM/BED: D.2107 AUTHOR: GRECIA,DOC PHYSICIAN: REFERRING PHYSICIAN: JAMILA WALKER MD DATE OF SERVICE: 12/13/19 Discharge Plan Patient Name: NIKOLAI ROGERS Facility: [facility]:[place] : 1930 Planned Disposition: Group Home Facility Anticipated Discharge Date: 12/12/19 Discharge Date: Expected LOS: 11 Initial Reviewer: [id number] Initial Review Date: 12/01/2019 Generated: 12/13/19 2:30 pm Comments DCP- Discharge Planning Updated by [id number]: Triny Borrero on 12/13/19 11:[address] Per Iris, patient has been accepted to [facility] today, to room 104S. faxed the COVID test also. Faxed BC results. Iris will contact with transportation time. DCP- Discharge Planning Updated by [id number]: Triny Borrero on 12/10/19 4:[address] [facility] cannot accept patient until Thursday 12/14. Per Rebekah, with [facility], the patient does not meet criteria for inpatient rehab. Informed her of other plans in progress. DCP- Discharge Planning Updated by [email or web address]: Triny Borrero on 12/09/19 2:[address] Marika Atkinson ([phone]) CM/DC assortment planner for [facility], called to inquire about DC plans for patient. CM made Marika aware that the patient has been accepted to [facility] and will go into the facility on Friday. CM read the Gait training comments, for distances and assist to her. DCP- Discharge Planning Updated by [id number]: Triny Borrero on 12/09/19 11:[address] Additional information faxed to Iris Leo for [facility]. The patient will have to have a COVID test, since he had a temp of 102 upon admission. COVID testing has been ordered. Patient has been accepted clinically to the [facility], to a Medicare Skilled bed, on Friday. CB from Rebekah Arguello APN for [facility]. Per Rebekah, the patient is not service connected and the VA probably will not cover for any Rehab services. CM request fax number for information to be faxed. Fx#[phone]. Faxed information to same. DCP- Discharge Planning Updated by [id number]: Triny Borrero on 12/08/19 4:[address] CM contacted patient's son-in-law, Irvin Segundo regarding the [facility] not accepting patient's due to the COVID crisis. Mr. Segundo states he doesn't listen to any voice mails on his phone, and was not aware. Explained the other options are HHS or a Skilled bed in a nursing facility. Per patient's son, he has been a client with [facility] in the past and this where he would like for the patient to go. This was explained in detail to the patient and he has signed a Patient Choice for [facility]. CM contacted Iris Leo to assist with finding a facility that will accept the patient. Required information has been faxed to Iris to [phone]. CM awaits the decision from [facility]. CM wroth down the name of [facility] and his son-in-law's phone number for the patient. DCP- Discharge Planning Updated by [id number]: Triny Borrero on 12/07/19 3:[address] 1618: CM left a VM with patient's son, Irvin Segundo, regarding additional placement options for this patient: HHS or Skilled in a nursing facility. Await CB. CM contacted Yoselyn, with [facility] regarding a one time contract with the [facility], per Yoselyn, the VA routinely will not contract, but can use Medicare benefits, if the patient and son will agree. 1542: CM left a VM with Rebekah Arguello to inquire if the VA will contract with [facility] for this patient. Provided my phone number and await CB. Contacted by Rebekah Arguello APRN, with [facility] regarding transfer. Per Rebekah, the [facility] is not accepting patients to rehab at this time. States she cannot see where patient might need Rehab from her notes. CM faxed required information to [phone], for the patient's chart. DCP- Discharge Planning Updated by [id number]: Triny Adair on 12/06/19 12:[address] CM contacted the [facility] regarding patient's request to transfer there for Rehab. CM spoke with Linsey, with the [facility], provided required information. Per Linsey, the VA requires a patient to go into a 14 day quarantine, be tested for COVID at the VA, prior to going into rehab. CM provided MD contact number for [facility]. Patient has been made aware of this and is in agreement. DCP- Discharge Planning Updated by [id number]: Trinymichael Borrero on 12/06/19 11:[address] DC Plan: Rehab vs home. Patient chan not want to use his Medicare benefits, and he agrees to [facility] if he can be accepted. CM will contact the [facility]. CM notified Roseann, with [facility] of same. CM met with patient to discuss initial discharge planning. Patient is in agreement to proceed with the assessment. Patient reports that he lives at home independently with his S-I-L, Irvin Segundo, #[phone]. Patient is alert/oriented. Stairs/steps:0. PCP: YASMIN CARRASCO. Pharmacy: [facility].Patient states he has been able to obtain all of her prescribed medications. HHS: No. DME: Walker, Shower chair. Patient gives permission to speak with family members. Patient is Independent with all ADL's, medication management TELEVISION PRESENTER. CM discussed the availability of HH, Rehab, SNF, OP Therapy, DME services. Patient agrees to Rehab, will attempt to find Rehab facility contracted with [facility]. Patient denies hospitalization within the past 30 days. Patient denies the use of community resources TELEVISION PRESENTER. Transportation at time of discharge: Patient's son-in-law. Patient declines SNF stay, only wants Rehab inpatient. DCP- Discharge Planning Updated by [id number]: Triny Blackmonlroy on 12/03/19 4:[address] CM contacted patient's son Irvin Segundo @[phone], to verify if he/patient wants to stay at [facility] vs use of [facility]. Patient's son request that patient stay here at [facility] for treatment and rehab. Per Caprice, with [facility], they are unable to transfer until Friday due to the December 03. CB on Friday if needed. DCPIA - Discharge Planning Initial Assessment Updated by [id number]: Triny Borrero on 12/06/19 1:48 pm * Is the patient Alert and Oriented? Yes * How many steps to enter\exit or inside your home? * PCP [facility] MD * Pharmacy [facility] * Preadmission Environment Home with Family * ADLs Independent * Equipment Rolling Walker Shower Chair * Other Equipment NA * List name and contact numbers for known caregivers / representatives who currently or will assist patient after discharge: Irvin Segundo [phone] * Verbal permission to speak to the caregivers and representatives has been obtained from the patient. Yes * Community resources currently utilized None * Please name any agencies selected above. [facility] * Additional services required to return to the preadmission environment? Yes * Can the patient safely return to the preadmission environment? No * Has this patient been hospitalized within the prior 30 days at any hospital? No Coverage Notice Reviewer: [id number] - Triny Borrero Notice Issued Date-Time: 12/08/2019 17:34 Notice Type: Patient Choice Letter Notice Delivered To: Patient Relationship to Patient: Self Radial Router Operator Name: Nikolai Rogers Delivery Method: HAND - Hand Delivered Delmi Days: Prior Verbal Notification: Recipient Understood Notice: Yes Recipient Signature: Yes Med Rec Note Co-signed by Attending: Coverage Notice Comment: Patient choice for [facility] placed on the chart. Last DP export: 12/13/19 11:40 a Patient Name: NIKOLAI ROGERS Page [id number] at 1330 All edits/amendments must be made on the electronic document DICTATION DATE: 12/13/19 1330 COMMUNICATION EQUIPMENT MECHANIC: BRIDGETTE 12/13/19 1330 RPT#: [id number] DC DATE: STATUS: ADM IN [facility] [address] [facility] [place] [address] END OF REPORT
--- NOTE | 2019-12-13 14:00 | NUR ---
CORRECTION WILL NOT BE ABLE TO PICK PT UP UNTIL AFTER 1800. WILL CNT. TO MONITOR.
--- NOTE | 2019-12-13 19:09 | NUR ---
PT ESCORTED OUT VIA WHEELCHAIR TO [facility].
--- NOTE | 2019-12-14 13:33 | MORECARE ---
CASE MANAGEMENT DISCHARGE SUMMARY PATIENT: NIKOLAI ROGERS UNIT: [id number] ADM DATE: 12/01/19 AGE: 89 : [birth year] SEX: M ROOM/BED: D.2103 AUTHOR: GRECIA,DOC PHYSICIAN: REFERRING PHYSICIAN: JAMILA WALKER MD DATE OF SERVICE: 12/14/19 Discharge Plan Patient Name: NIKOLAI ROGERS Facility: [facility] : 1930 Planned Disposition: Fci Facility Anticipated Discharge Date: 12/12/19 Discharge Date: 12/13/2019 Expected LOS: 11 Initial Reviewer: LYN Initial Review Date: 12/01/2019 Generated: 12/14/19 2:32 pm Comments DCP- Discharge Planning Updated by [email or web address]: Triny Borrero on 12/13/19 11:[address] Per Challenge, patient has been accepted to [facility] today, to room 104S. faxed the COVID test also. Faxed BC results. Iris will contact with transportation time. DCP- Discharge Planning Updated by [email or web address]: Triny Borrero on 12/10/19 4:[address] [facility] cannot accept patient until Thursday 12/14. Per Rebekah, with [facility], the patient does not meet criteria for inpatient rehab. Informed her of other plans in progress. DCP- Discharge Planning Updated by [email or web address]: Triny Borrero on 12/09/19 2:[address] Marika Atkinson ([phone]) CM/DC assistant media planner for [facility], called to inquire about DC plans for patient. CM made Marika aware that the patient has been accepted to [facility] and will go into the facility on Friday. CM read the Gait training comments, for distances and assist to her. DCP- Discharge Planning Updated by [id number]: Triny Borrero on 12/09/19 11:[address] Additional information faxed to Iris Nguyenbell for [facility]. The patient will have to have a COVID test, since he had a temp of 102 upon admission. COVID testing has been ordered. Patient has been accepted clinically to the [facility], to a Medicare Skilled bed, on Friday. CB from Rebekah Arguello APN for [facility]. Per Rebekah, the patient is not service connected and the VA probably will not cover for any Rehab services. CM request fax number for information to be faxed. Fx#[phone]. Faxed information to same. DCP- Discharge Planning Updated by [id number]: Triny Borrero on 12/08/19 4:[address] CM contacted patient's son-in-law, Irvin Segundo [phone] regarding the [facility] not accepting patient's due to the COVID crisis. Mr. Segundo states he doesn't listen to any voice mails on his phone, and was not aware. Explained the other options are HHS or a Skilled bed in a nursing facility. Per patient's son, he has been a client with [facility] in the past and this where he would like for the patient to go. This was explained in detail to the patient and he has signed a Patient Choice for [facility]. CM contacted [facility] Leo to assist with finding a facility that will accept the patient. Required information has been faxed to Iris to [phone]. CM awaits the decision from [facility]. CM wroth down the name of [facility] and his son-in-law's phone number for the patient. DCP- Discharge Planning Updated by [id number]: Triny Borrero on 12/07/19 3:[address] 1618: CM left a VM with patient's son, Irvin Segundo, regarding additional placement options for this patient: HHS or Skilled in a nursing facility. Await CB. CM contacted Yoselyn, with [facility] regarding a one time contract with the [facility], per Yoselyn, the VA routinely will not contract, but can use Medicare benefits, if the patient and son will agree. 1542: CM left a VM with Rebekah Arguello to inquire if the VA will contract with [facility] for this patient. Provided my phone number and await CB. Contacted by Rebekah Arguello APRN, with [facility] regarding transfer. Per Rebekah, the [facility] is not accepting patients to rehab at this time. States she cannot see where patient might need Rehab from her notes. CM faxed required information to [phone], for the patient's chart. DCP- Discharge Planning Updated by [id number]: Triny Adair on 12/06/19 12:[address] CM contacted the [facility] regarding patient's request to transfer there for Rehab. CM spoke with Linsey, with the [facility], provided required information. Per Linsey, the VA requires a patient to go into a 14 day quarantine, be tested for COVID at the VA, prior to going into rehab. CM provided MD contact number for [facility]. Patient has been made aware of this and is in agreement. DCP- Discharge Planning Updated by [email or web address]: Triny Borrero on 12/06/19 11:[address] DC Plan: Rehab vs home. Patient chan not want to use his Medicare benefits, and he agrees to [facility] if he can be accepted. CM will contact the [facility]. CM notified Roseann, with [facility] of same. CM met with patient to discuss initial discharge planning. Patient is in agreement to proceed with the assessment. Patient reports that he lives at home independently with his S-I-L, Irvin Segundo, #[phone]. Patient is alert/oriented. Stairs/steps:0. PCP: YASMIN CARRASCO. Pharmacy: [facility].Patient states he has been able to obtain all of her prescribed medications. HHS: No. DME: Walker, Shower chair. Patient gives permission to speak with family members. Patient is Independent with all ADL's, medication management [employer]. CM discussed the availability of HH, Rehab, SNF, OP Therapy, DME services. Patient agrees to Rehab, will attempt to find Rehab facility contracted with [facility]. Patient denies hospitalization within the past 30 days. Patient denies the use of community resources [employer]. Transportation at time of discharge: Patient's son-in-law. Patient declines SNF stay, only wants Rehab inpatient. DCP- Discharge Planning Updated by [id number]: Triny Adair on 12/03/19 4:[address] CM contacted patient's son Irvin Segundo @[phone], to verify if he/patient wants to stay at [facility] vs use of [facility]. Patient's son request that patient stay here at [facility] for treatment and rehab. Per Caprice, with [facility], they are unable to transfer until Friday due to the December 03 hol. CB on Friday if needed. DCPIA - Discharge Planning Initial Assessment Updated by [id number]: Triny Borrero on 12/06/19 1:48 pm * Is the patient Alert and Oriented? Yes * How many steps to enter\exit or inside your home? * PCP [facility] MD * Pharmacy [facility] * Preadmission Environment Home with Family * ADLs Independent * Equipment Rolling Walker Shower Chair * Other Equipment NA * List name and contact numbers for known caregivers / representatives who currently or will assist patient after discharge: Irvin Segundo [phone] * Verbal permission to speak to the caregivers and representatives has been obtained from the patient. Yes * Community resources currently utilized None * Please name any agencies selected above. [facility] * Additional services required to return to the preadmission environment? Yes * Can the patient safely return to the preadmission environment? No * Has this patient been hospitalized within the prior 30 days at any hospital? No Coverage Notice Reviewer: [id number] - Triny Borrero Notice Issued Date-Time: 12/08/2019 17:34 Notice Type: Patient Choice Letter Notice Delivered To: Patient Relationship to Patient: Self [employer] Mill Tin Roller Name: Nikolai Rogers Delivery Method: HAND - Hand Delivered Delmi Days: Prior Verbal Notification: Recipient Understood Notice: Yes Recipient Signature: Yes Med Rec Note Co-signed by Attending: Coverage Notice Comment: Patient choice for [facility] placed on the chart. Last DP export: 12/13/19 12:31 p Patient Name: NIKOLAI ROGERS Page 34234 at 1333 All edits/amendments must be made on the electronic document DICTATION DATE: 12/14/191331 HARD METALS ENGRAVER HAND: BRIDGETTE 12/14/19 1332 RPT#: [id number] DC DATE:12/13/19 STATUS: DIS IN [facility] [address] [place] [address] END OF REPORT
== END 2019-12-13 19:10 | DRG 871 ==
LOC: D.ER 00:01 → D.M2 01:41
PROVIDERS: Emergency Medicine; Family Medicine; ADMIT Family Medicine; ATTEND Family Medicine
DX: A41.9 Sepsis, unspecified organism (principal); G93.41 Metabolic encephalopathy; N17.9 Acute kidney failure, unspecified; D64.9 Anemia, unspecified; Z79.01 Long term (current) use of anticoagulants; R32 Unspecified urinary incontinence

== ENCOUNTER 2020-01-04 02:45 | Inpatient (IN) | payer OTHER ==
[~2020-01-04] VITALS: Ht 182.9 cm; Wt 90.7 kg
[2020-01-04 03:54] LABS: ANION GAP 10.1 mmol/L (8-16); CALCIUM 8.2 mg/dL (8.5-10.1); CARBON DIOXIDE 28.7 mmol/L (21.0-32.0); CREATININE - SERUM 1.9 mg/dL (0.6-1.3); POTASSIUM - SERUM 3.8 mmol/L (3.5-5.1)
[2020-01-04 04:00] LABS: ALBUMIN 3.1 g/dL (3.4-5.0); BILIRUBIN - TOTAL 0.38 mg/dL (0.2-1.3); PROTEIN - SERUM 6.7 g/dL (6.4-8.2)
[2020-01-04 04:02] LABS: BASOPHILS 0.3 % (0-2); EOSINOPHILS 3.6 % (0-7); HEMATOCRIT 38.6 % (42.0-54.0); HEMOGLOBIN 12.7 g/dL (13.5-17.5); IMMATURE GRANULOCYTES 0.3 % (0-5); LYMPHOCYTES 12.3 % (15-50); MCH 29.8 pg (26.0-34.0); MCHC 32.9 g/dL (31.0-37.0); MCV 90.6 fL (80.0-100.0); MEAN PLATELET VOLUME 9.8 fL (7.4-10.4); MONOCYTES 6.9 % (2-11); NEUTROPHILS 76.6 % (40-80); PLATELET COUNT 147 10x3/uL (130-400); RBC 4.26 10x6/uL (4.20-6.10); RDW 13.9 % (11.5-14.5); WBC 6.6 10x3/uL (4.8-10.8)
[2020-01-04 05:29] LABS: INR 1.21 (0.85-1.17); PROTIME 15.2 SECONDS (11.6-15.0)
[2020-01-04 05:48] LABS: CREATINE KINASE 63 UL (21-232); TROPONIN-I 0.024 ng/mL (0.000-0.060)
[2020-01-04 06:34] VITALS: BP 135/63
--- NOTE | 2020-01-04 07:30 | NUR ---
RECEIVED TO ROOM PER ER STAFF. ALERT AND ORIENTED X3 WELL STAFF AND ENVIRONMENT AND CALL LIGHT. LUNGS DIMINISHED X4 ANTERIOR WITH O2 PLACED AT 2L N/C FOR O2 SAT 88% AND RECOVERD TO 96%. FALL PRECAUTIONS IN PLACE AND ENCOURAGED TO USE CALL LIGHT FOR ASSSIT.
[2020-01-04] MEDS ORDERED: HYTRIN10 MG PO (07:43)
[2020-01-04] MEDS ORDERED: TERAZOSIN HCL2 MG (07:46)
[2020-01-04] MEDS ORDERED: K-TAB10 MEQ PO (07:47)
[2020-01-04] MEDS ORDERED: FUROSEMIDE40 MG PO (07:48)
[2020-01-04 08:00] VITALS: BP 146/74; BMI 27.2
[2020-01-04] MEDS ORDERED: ELIQUIS5 MG PO (10:41)
[2020-01-04 12:42] VITALS: BP 124/61
[2020-01-04 13:29] VITALS: BMI 27.1
--- NOTE | 2020-01-04 15:33 | NUR ---
[facility] CALLED WITH MESSAGE LEFT REGARDING PATIENT NEEDIG HIS DENTURES FOR MEALS. PATIENT STATED HAVENT SEEN THEM IN A FEW DAYS WITH PATIENT BEING ADMITTED TODAY.
[2020-01-04 16:12] VITALS: BP 151/57
--- NOTE | 2020-01-04 19:25 | NUR ---
LYING IN BED. ALERT AND ORIENTED X2 SELF AND PLACE. CONFUSED. RESP IRREG. O2 @ 3L/NC. SKIN TEAR NOTED TO RUE AND BUTTOCK. BRUISES NOTED TO BUE. TELEMETRY SHOWS SR WITH RATE OF 62. YESICA ALARM IN USE. DENIES PAIN. NO DISTRESS. SALINE LOCK NOTED TO LT AC. NONPROD COUGH NOTED. SR ELEVATED X2. CL IN REACH.
[2020-01-04 20:00] VITALS: BP 133/62
[2020-01-05] VITALS: BP 161/66
--- NOTE | 2020-01-05 03:17 | NUR ---
[place] CONDOM CATH WAS PLACED EARLIER BUT WONT STAY ON. INCONT OF URINE. PERICARE PERFORMED AND LINENS CHANGED AGAIN. PT TAB WELL.
[2020-01-05 04:00] VITALS: BP 140/83
[2020-01-05 06:30] LABS: % SATURATION 25 % (15-55); IRON 54 ug/dl (35-150); TOTAL IRON BIND CAPACITY 215 ug/dl (260-445); UNSAT IRON BIND CAPACITY 161 ug/dl (150-375)
[2020-01-05 09:10] VITALS: BP 156/70
[2020-01-05 10:10] LABS: BASOPHILS 0.5 % (0-2); EOSINOPHILS 7.4 % (0-7); HEMATOCRIT 38.5 % (42.0-54.0); HEMOGLOBIN 12.7 g/dL (13.5-17.5); IMMATURE GRANULOCYTES 0.2 % (0-5); LYMPHOCYTES 8.8 % (15-50); MEAN PLATELET VOLUME 10.4 fL (7.4-10.4); MONOCYTES 8.2 % (2-11); NEUTROPHILS 74.9 % (40-80); PLATELET COUNT 153 10x3/uL (130-400); RBC 4.23 10x6/uL (4.20-6.10); WBC 6.3 10x3/uL (4.8-10.8)
[2020-01-05 10:13] LABS: ALBUMIN 2.9 g/dL (3.4-5.0); ANION GAP 14.6 mmol/L (8-16); BILIRUBIN - TOTAL 0.72 mg/dL (0.2-1.3); CALCIUM 8.3 mg/dL (8.5-10.1); CARBON DIOXIDE 25.2 mmol/L (21.0-32.0); CREATININE - SERUM 1.5 mg/dL (0.6-1.3); POTASSIUM - SERUM 3.8 mmol/L (3.5-5.1); PROTEIN - SERUM 6.6 g/dL (6.4-8.2)
[2020-01-05 12:53] VITALS: BP 129/67
[2020-01-05 17:05] VITALS: BP 148/65
--- NOTE | 2020-01-05 17:16 | NUR ---
OT NOTE: PT COMPLETED FACE/HAND HYGIENE TASKS WITH SETUP. PT COMPLETED REACH/GRASP TECHNIQUES TO INCREASE I WITH SELF CARE TASKS. 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 PT STATED WHEN HE CLOSES HIS EYES IT IS BETTER. NURSING AWARE. [phone] MICHAEL ROJAS COTA
--- NOTE | 2020-01-05 19:10 | NUR ---
AWAKE AND ALERT. ORIENTED TO SELF AND PLACE. CONFUSED. RESP IRREG. O2 @ 3L/NC. BRUISES NOTED TO BUE. SKIN TEAR TO RT BUTTOCK. INCONT OR URINE. NONPROD COUGH. SALINE LOCK NOTED TO RT FOREARM. 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 DENIES PAIN. YESICA ALARM ON FOR PT SAFETY. NO DISTRESS. CL IN REACH.
[2020-01-05 20:00] VITALS: BP 132/72
--- NOTE | 2020-01-05 23:30 | NUR ---
RECEIVED CALL FROM PAT AT [facility] IN [place] ASKING ABOUT STATUS OF TRANSFER. SHE STATES THAT AIMEE SERRANO HAD SPOKEN WITH THEM AND THAT SHE HAD GOTTEN DR GINA KANG NEUROSURGEONS PHONE NUMBER AND WAS SUPPOSED TO GIVE IT TO DR ARORA SO THEY COULD SPEAK ABOUT THE NEED FOR TRANSFER. HAVENT HEARD IF DR KANG HAS ACCEPTED PT YET. SPOKE WITH YARN SIZER ABIGAIL RODRIGUEZ ABOUT THIS AND THAT DR TEMPLE WITH [facility] HERE WAS GOING TO BE CONSULTED PER DR WALKER TOMORROW. INSTRUCTED FOR MARKETING PROFESSIONAL TO LOOK INTO THIS TOMORROW. NOTIFIED PAT AT [facility] THAT STATUS OF TRANSFER WAS UNKNOWN AT THIS POINT SINCE CONSULTS WERE MADE HERE.
[2020-01-06] VITALS: BP 137/69
--- NOTE | 2020-01-06 03:26 | NUR ---
HAS RESTED WELL TONIGHT. NO DISTRESS. CL IN REACH.
[2020-01-06 04:00] VITALS: BP 157/80
[2020-01-06 06:06] LABS: BASOPHILS 0.3 % (0-2); EOSINOPHILS 6.9 % (0-7); HEMATOCRIT 37.9 % (42.0-54.0); HEMOGLOBIN 12.5 g/dL (13.5-17.5); IMMATURE GRANULOCYTES 0.2 % (0-5); LYMPHOCYTES 10.2 % (15-50); MCH 29.8 pg (26.0-34.0); MCV 90.5 fL (80.0-100.0); MEAN PLATELET VOLUME 10.1 fL (7.4-10.4); MONOCYTES 9.1 % (2-11); NEUTROPHILS 73.3 % (40-80); PLATELET COUNT 152 10x3/uL (130-400); RBC 4.19 10x6/uL (4.20-6.10); WBC 6.5 10x3/uL (4.8-10.8)
[2020-01-06 06:29] LABS: ALBUMIN 2.7 g/dL (3.4-5.0); ANION GAP 9.1 mmol/L (8-16); BILIRUBIN - TOTAL 0.63 mg/dL (0.2-1.3); CALCIUM 8.1 mg/dL (8.5-10.1); CARBON DIOXIDE 28.5 mmol/L (21.0-32.0); CREATININE - SERUM 1.5 mg/dL (0.6-1.3); POTASSIUM - SERUM 3.6 mmol/L (3.5-5.1); PROTEIN - SERUM 6.5 g/dL (6.4-8.2)
[2020-01-06 09:36] VITALS: BP 154/70
[2020-01-06 11:54] VITALS: Ht 182.9 cm; Wt 90.7 kg
--- NOTE | 2020-01-06 12:29 | NUR ---
OT NOTE: D/C UNTIL AFTER VERTEBROPLASTY.. PLEASE RECONSULT FOLLOWING PROCEDURE. AUGUST MARSH, OTR/L
[2020-01-06 17:53] VITALS: BP 138/89
[2020-01-06 20:00] VITALS: BP 143/83
[2020-01-07] VITALS: BP 158/80
[2020-01-07 04:00] VITALS: BP 133/79
--- NOTE | 2020-01-07 04:14 | NUR ---
ASSESSED AT THE BEGINNING OF THE SHIFT. PT IS AWAKE AND ABLE TO VERBALIZE NEEDS BUT AT TIMES IS HARD TO UNDERSTAND. HE IS C/O A LOT OF BACK PAIN AND GETS UPSET WHEN CHANGING THE BED WHEN INCONTINENT. HE IS ABLE TO SWALLOW WELL. HAS O2 IN PLACE AND IS WEARING TELEMETRY. HAS BEEN AWAKE ALOT OF THE EARY MORNING WATCHING TV.
[2020-01-07 05:57] LABS: BASOPHILS 0.2 % (0-2); EOSINOPHILS 5.9 % (0-7); HEMATOCRIT 38.1 % (42.0-54.0); HEMOGLOBIN 12.4 g/dL (13.5-17.5); LYMPHOCYTES 11.7 % (15-50); MCH 29.5 pg (26.0-34.0); MCHC 32.5 g/dL (31.0-37.0); MCV 90.7 fL (80.0-100.0); MEAN PLATELET VOLUME 10.3 fL (7.4-10.4); MONOCYTES 10.1 % (2-11); NEUTROPHILS 72.1 % (40-80); PLATELET COUNT 153 10x3/uL (130-400); RDW 13.9 % (11.5-14.5); WBC 6.3 10x3/uL (4.8-10.8)
[2020-01-07 06:53] LABS: ALBUMIN 2.7 g/dL (3.4-5.0); ANION GAP 12.3 mmol/L (8-16); BILIRUBIN - TOTAL 0.49 mg/dL (0.2-1.3); CALCIUM 7.9 mg/dL (8.5-10.1); CARBON DIOXIDE 28.6 mmol/L (21.0-32.0); CREATININE - SERUM 1.3 mg/dL (0.6-1.3); POTASSIUM - SERUM 3.9 mmol/L (3.5-5.1); PROTEIN - SERUM 6.1 g/dL (6.4-8.2)
--- NOTE | 2020-01-07 07:49 | NUR ---
ALERT AND ORIENTED. LUNGS CLEAR BILATERALLY. HEART SOUNDS S1 AND S2 HEARD IN ALL WEEMS. BOWEL SOUNDS ACTIVE X 4. IV TO RFA SL PATENT WITHOUT REDNESS. O2 IN PLACE AT 3L NC. DENIES NEEDS. BED LOW. CALL MARTINEZ AND PERSONAL ITEMS IN REACH. WILL CONTINUE TO MONITOR.
[2020-01-07 09:43] VITALS: BP 149/76
[2020-01-07 11:10] LABS: APTT 39.9 SECONDS (22.8-39.4); INR 1.15 (0.85-1.17); PROTIME 14.7 SECONDS (11.6-15.0)
[2020-01-07] MEDS ORDERED: HYDROCODON-ACE1 EAC7 PO (11:40)
[2020-01-07] MEDS ORDERED: ZITHROMAX250 MG PO (11:40)
[2020-01-07] MEDS ORDERED: LOVENOX40 MG/0.4 SC (11:40)
[2020-01-07] MEDS ORDERED: IPRAT-ALBUT 0.5-3 ML UPD (11:40)
[2020-01-07] MEDS ORDERED: ROCEPHIN 1 GM/D51 G1 IV (11:40)
[2020-01-07] MEDS ORDERED: TESSALON PERLE100 MG PO (11:41)
[2020-01-07] MEDS ORDERED: OCUFLOX 0.3 % OP5 ML EACH EYE (11:41)
[2020-01-07] MEDS ORDERED: MUCINEX600 MG PO (11:41)
[2020-01-07] MEDS ORDERED: FLORAJEN3 CAPS460 MG PO (11:41)
[2020-01-07] MEDS ORDERED: PROTONIX40 MG PO (11:41)
--- NOTE | 2020-01-07 11:44 | MORECARE ---
CASE MANAGEMENT DISCHARGE SUMMARY PATIENT: NIKOLAI ROGERS UNIT: [id number] ADM DATE: 01/04/20 AGE: 89 : [birth year] SEX: M ROOM/BED: D.2211 AUTHOR: GRECIADOC PHYSICIAN: REFERRING PHYSICIAN: ABIEL ARAUZ MD DATE OF SERVICE: 01/07/20 Discharge Plan Patient Name: NIKOLAI ROGERS Facility: [facility]:[place] : 1930 Planned Disposition: Critical Access Hopital Anticipated Discharge Date: Discharge Date: Expected LOS: Initial Reviewer: [id number] Initial Review Date: 01/04/2020 Generated: 01/07/20 12:44 pm Comments DCP- Discharge Planning Updated by [id number]: Tara Staley on 01/07/20 9:[address] I HAVE STARTED THE PROCESS AGAIN TO GET THE PATIENT TRANSFERED TO [facility] DCP- Discharge Planning Updated by [id number]: Nandini Cason on 01/05/20 5:[address] Patient Name: NIKOLAI ROGERS Admission Status: ER Accout number: [id number] Admission Date: 01-04-2020 : 1930 Admission Diagnosis: Attending: ELLA Current LOS: 1 Anticipated DC Date: Planned Disposition: Primary Insurance: [employer] Discharge Planning Comments: SPOKE WITH REILLY AT [facility] IN [place] AT [phone] ABOUT TRANSFER FOR NEUROSURGERY. SHE STATES WILL HAVE TO TALK DIRECTLY WITH PHYSICIAN. SRIRAM SAUL APN NOTIFIED, ALSO BETTY HAYESBROADCAST DESIGNER AND BASSAM HAYES PATIENT'S NURSE AWARE OF NEED FOR TRANSFER. Marine Scientist: Nandini Cason DCP- Discharge Planning Updated by [id number]: Nandini Cason on 01/05/20 5:[address] Patient Name: NIKOLAI ROGERS Admission Status: ER Accout number: [id number] Admission Date: 01-04-2020 : 1930 Admission Diagnosis: Attending: ELLA Current LOS: 1 Anticipated DC Date: Planned Disposition: Primary Insurance: [employer] Discharge Planning Comments: [facility] NOT [facility] MO[place]ST[place] OR NEUROSURGERY. WILL REPORT OFF TO THE NURSE AND SRIRAM YU. I AM CALLING [facility]. Marine Scientist: Nandini Cason Patient Name: NIKOLAI ROGERS Page 17899 at 1144 All edits/amendments must be made on the electronic document DICTATION DATE: 01/07/20 1144 ROOMING HOUSE OPERATOR: BRIDGETTE 01/07/20 1144 RPT#: [id number] DC DATE: STATUS: ADM IN [facility] [address] [place] [address] END OF REPORT
--- NOTE | 2020-01-07 11:53 | MORECARE ---
CASE MANAGEMENT DISCHARGE SUMMARY PATIENT: NIKOLAI ROGERS UNIT: [id number] ADM DATE: 01/04/20 AGE: 89 : [birth year] SEX: M ROOM/BED: D.2211 AUTHOR: SEDA PAIGE PHYSICIAN: REFERRING PHYSICIAN: ABIEL ARAUZ MD DATE OF SERVICE: 01/07/20 Discharge Plan Patient Name: NIKOLAI ROGERS Facility: [facility]:[place] : 1930 Planned Disposition: Critical Access Hopital Anticipated Discharge Date: Discharge Date: Expected LOS: Initial Reviewer: [id number] Initial Review Date: 01/04/2020 Generated: 01/07/20 12:52 pm Comments DCP- Discharge Planning Updated by [email or web address]: Tara Staley on 01/07/20 10:[address] I SPOKE WITH THE SON TO LET HIM KNOW ABOUT THE TRANSFER. DCP- Discharge Planning Updated by [email or web address]: Tara Staley on 01/07/20 10:[address] PATIENT HAS BEEN ACCEPTED TO [facility] THEY WILL BE TRANSPORTED TO THEIR ED REPORT TO BE CALLED TO [facility] THE CHARGE NURSE AT [phone] THE ACCEPTING MD IS DR ALYCIA DOAN THE CONSULT WILL BE DR LAWANDA KANG HE WILL BE TRANSPORTED VIA EMS I ATTEMPTED TO CALL PATIENT'S SON MACI [phone] I DID NOT GET AN ANSWER DCP- Discharge Planning Updated by [id number]: Tara Staley on 01/07/20 9:[address] I HAVE STARTED THE PROCESS AGAIN TO GET THE PATIENT TRANSFERED TO [facility] DCP- Discharge Planning Updated by [id number]: Nandini Cason on 01/05/20 5:[address] Patient Name: NIKOLAI ROGERS Admission Status: ER Accout number: [id number] Admission Date: 01-04-2020 : 1930 Admission Diagnosis: Attending: ELLA Current LOS: 1 Anticipated DC Date: Planned Disposition: Primary Insurance: [employer] Discharge Planning Comments: SPOKE WITH REILLY AT [facility] IN [place] AT [phone] ABOUT TRANSFER FOR NEUROSURGERY. SHE STATES WILL HAVE TO TALK DIRECTLY WITH PHYSICIAN. SRIRAM SAUL APN NOTIFIED, ALSO BETTY NOISE ABATEMENT ENGINEER AND BASSAM RN PATIENT'S NURSE AWARE OF NEED FOR TRANSFER. Value Analysis Coordinator: Nandini Cason DCP- Discharge Planning Updated by [id number]: Nandini Cason on 01/05/20 5:[address] Patient Name: NIKOLAI ROGERS Admission Status: ER Accout number: [id number] Admission Date: 01-04-2020 : 1930 Admission Diagnosis: Attending: ELLA Current LOS: 1 Anticipated DC Date: Planned Disposition: Primary Insurance: [facility] ADMIN[facility]ATION Discharge Planning Comments: CALLED THE [place] PHONE LINE AND THEY DO NOT HAVE [place] OR NEUROSURGERY. WILL REPORT OFF TO THE NURSE AND SRIRAM YU. I AM CALLING [facility] NOW. Value Analysis Coordinator: Nandini Cason Last DP export: 01/07/20 10:44 am Patient Name: NIKOLAI ROGERS Page 74212 at 1153 All edits/amendments must be made on the electronic document DICTATION DATE: 01/07/20 1152 FIELD INSPECTOR: BRIDGETTE 01/07/20 1152 RPT#: [id number] DC DATE: STATUS: ADM IN [facility] [address] [place] [address] END OF REPORT
--- NOTE | 2020-01-07 12:52 | NUR ---
DISCHARGE EDUCATION PROVIDED BOTH WRITTEN AND VERBAL. VERBALIZED UNDERSTANDING. DENIES FURTHER QUESTIONS. STATES DO NOT NEED TO CALL ANY FAMILY MEMBERS TO MAKE AWARE OF DISCHARGE. REPORT CALLED TO FE HERNANDEZ RN AT [facility] ED. IV LEFT IN RFA PER RN REQUEST. TELEMETRY REMOVED AND RETURNED TO JUN AT MONITOR.
--- NOTE | 2020-01-07 14:07 | NUR ---
PATIENT'S BROTHER AT HOSPITAL WITH PATIENT GIVEN ADDRESS FOR [facility] PER PATIENT REQUEST. PATIENT DC TO [facility] IN [place] PER AMBULANCE WITH ALL BELONGINGS.
--- NOTE | 2020-01-08 12:58 | MORECARE ---
CASE MANAGEMENT DISCHARGE SUMMARY PATIENT: NIKOLAI ROGERS UNIT: [id number] ADM DATE: 01/04/20 AGE: 89 : [birth year] SEX: M ROOM/BED: D.2211 AUTHOR: GRECIADOC PHYSICIAN: REFERRING PHYSICIAN: ABIEL ARAUZ MD DATE OF SERVICE: 01/08/20 Discharge Plan Patient Name: NIKOLAI ROGERS Facility: [facility]:[place] : 1930 Planned Disposition: Critical Access Hopital Anticipated Discharge Date: Discharge Date: 01/07/2020 Expected LOS: Initial Reviewer: [id number] Initial Review Date: 01/04/2020 Generated: 01/08/20 1:57 pm Comments DCP- Discharge Planning Updated by [email or web address]: Tara Staley on 01/07/20 10:[address] I SPOKE WITH THE SON TO LET HIM KNOW ABOUT THE TRANSFER. DCP- Discharge Planning Updated by [id number]: Tara Staley on 01/07/20 10:[address] PATIENT HAS BEEN ACCEPTED TO [facility] THEY WILL BE TRANSPORTED TO THEIR ED REPORT TO BE CALLED TO [facility] THE CHARGE NURSE AT [phone] THE ACCEPTING MD IS DR ALYCIA DOAN THE CONSULT WILL BE DR LAWANDA KANG HE WILL BE TRANSPORTED VIA EMS I ATTEMPTED TO CALL PATIENT'S SON MACI [phone] I DID NOT GET AN ANSWER DCP- Discharge Planning Updated by [id number]: Tara Staley on 01/07/20 9:[address] I HAVE STARTED THE PROCESS AGAIN TO GET THE PATIENT TRANSFERED TO [facility] DCP- Discharge Planning Updated by [id number]: Nandini Cason on 01/05/20 5:[address] Patient Name: NIKOLAI ROGERS Admission Status: ER Accout number: [id number] Admission Date: 01-04-2020 : 1930 Admission Diagnosis: Attending: ELLA Current LOS: 1 Anticipated DC Date: Planned Disposition: Primary Insurance: [employer] Discharge Planning Comments: SPOKE WITH REILLY AT [facility] IN [place] AT [phone] ABOUT TRANSFER FOR NEUROSURGERY. SHE STATES WILL HAVE TO TALK DIRECTLY WITH PHYSICIAN. SRIRAM SAUL APN NOTIFIED, ALSO BETTY HAYESUNIT TENDER AND BASSAM RN PATIENT'S NURSE AWARE OF NEED FOR TRANSFER. Tightening Machine Operator: Nandini Cason DCP- Discharge Planning Updated by [id number]: Nandini Cason on 01/05/20 5:[address] Patient Name: NIKOLAI ROGERS Admission Status: ER Accout number: [id number] Admission Date: 01-04-2020 : 1930 Admission Diagnosis: Attending: ELLA Current LOS: 1 Anticipated DC Date: Planned Disposition: Primary Insurance: [facility] ADMINISTRATION Discharge Planning Comments: CALLED THE [place] PH[place] AND THEY DO NOT HAVE [place] OR NEUROSURGERY. WILL REPORT OFF TO THE NURSE AND SRIRAM YU. I AM CALLING [facility]. Tightening Machine Operator: Nandini Mendez DP export: 01/07/20 10:53 am Patient Name: NIKOLAI ROGERS Page 75672 at 1258 All edits/amendments must be made on the electronic document DICTATION DATE: 01/08/20 1257 MANAGER BENCH: BRIDGETTE 01/08/20 1257 RPT#: [id number] DC DATE:01/07/20 STATUS: DIS IN [facility] [address] [place] [address] END OF REPORT
== END 2020-01-07 14:07 | disposition short-term general hospital (02) | DRG 552 ==
LOC: D.ER 02:45 → D.MS 05:56
PROVIDERS: Family Medicine; Radiology Diagnostic Radiology; ADMIT Family Medicine; ATTEND Family Medicine
DX: S22.089A Unspecified fracture of T11-T12 vertebra, initial encounter for closed fracture (principal); N17.9 Acute kidney failure, unspecified; M54.16 Radiculopathy, lumbar region; W19.XXXA Unspecified fall, initial encounter; Y92.9 Unspecified place or not applicable; R60.9 Edema, unspecified; E86.0 Dehydration; I11.0 Hypertensive heart disease with heart failure; I50.9 Heart failure, unspecified; G89.29 Other chronic pain; D64.9 Anemia, unspecified; Z72.0 Tobacco use

== ENCOUNTER 2020-07-26 13:27 | Emergency (ER) | payer OTHER ==
[~2020-07-26] VITALS: Ht 182.9 cm; Wt 91.8 kg
[~2020-07-26 13:27] MED LIST changes: +ELIQUIS2.5 MG PO; +FLORAJEN3 CAPS460 MG PO; +FUROSEMIDE40 MG PO; +HYDROCODON-ACE1 EAC7 PO; +HYTRIN10 MG PO; +IPRAT-ALBUT 0.5-3 ML UPD; +LOPRESSOR25 MG PO; +LOVENOX40 MG/0.4 SC; +MIRALAX17 GM PO; +MUCINEX600 MG PO; +PROTONIX40 MG PO; +ROCEPHIN 1 GM/D51 G1 IV; +TESSALON PERLE100 MG PO; +ZITHROMAX250 MG PO
[2020-07-26 13:32] VITALS: Ht 182.9 cm; Wt 91.8 kg
[2020-07-26 14:12] LABS: BASOPHILS 0.3 % (0-2); EOSINOPHILS 1.9 % (0-7); HEMATOCRIT 36.1 % (42.0-54.0); HEMOGLOBIN 11.6 g/dL (13.5-17.5); IMMATURE GRANULOCYTES 0.2 % (0-5); LYMPHOCYTE ABS# 0.97 10x3/uL (1.32-3.57); LYMPHOCYTES 15.1 % (15-50); MCH 28.3 pg (26.0-34.0); MCHC 32.1 g/dL (31.0-37.0); MEAN PLATELET VOLUME 9.1 fL (7.4-10.4); NEUTROPHIL ABS# 4.65 10x3/uL (1.78-5.38); NEUTROPHILS 72.5 % (40-80); PLATELET COUNT 187 10x3/uL (130-400); WBC 6.4 10x3/uL (4.8-10.8)
[2020-07-26 14:20] LABS: CALC OSMOLALITY 281 mosm/kg (275-300); CALCIUM 7.8 mg/dL (8.5-10.1); CARBON DIOXIDE 33.3 mmol/L (21.0-32.0); CHLORIDE - SERUM 105 mmol/L (98-107); CREATININE - SERUM 1.2 mg/dL (0.6-1.3); GLUCOSE 105 mg/dL (74-106); SODIUM 141 mmol/L (136-145); UREA NITROGEN 15 mg/dL (7-18); eGFR NON AFRICAN AMERICAN 61 mL/min (90-120)
[2020-07-26 14:21] LABS: INR 1.9 (0.85-1.17); PROTIME 20.2 SECONDS (11.6-15.0)
[2020-07-26 14:22] LABS: APTT 44.6 SECONDS (22.8-39.4)
[2020-07-26 14:24] LABS: UDS - AMPHET NEGATIVE QUAL (NEGATIVE); UDS - BARB NEGATIVE QUAL (NEGATIVE); UDS - BENZO NEGATIVE QUAL (NEGATIVE); UDS - COCAINE NEGATIVE QUAL (NEGATIVE); UDS - OPIATE NEGATIVE QUAL (NEGATIVE); UDS - PCP NEGATIVE QUAL (NEGATIVE); UDS - THC NEGATIVE QUAL (NEGATIVE)
[2020-07-26 14:28] LABS: BACTERIA MANY HPF (NONE SEEN); BILIRUBIN NEGATIVE (NEGATIVE); KETONE NEGATIVE (NEGATIVE); NITRITE POSITIVE (NEGATIVE); UROBILINOGEN 4 mg/dL (< 2); WHITE CELLS - URINE >50 HPF (0-1)
[2020-07-26 14:41] LABS: ALBUMIN 1.9 g/dL (3.4-5.0); ALKALINE PHOSPHATASE 95 U/L (30-120); ALT (SGPT) 9 U/L (10-68); BILIRUBIN - TOTAL 0.75 mg/dL (0.2-1.3); CKMB 1.7 U/L (0.0-3.6); CREATINE KINASE 25 UL (21-232); MAGNESIUM - SERUM 1.4 mg/dL (1.8-2.4); PROTEIN - SERUM 6.2 g/dL (6.4-8.2); THYROID STIMULATING HORMONE 1.25 uIU/mL (0.36-3.74); TROPONIN-I 0.028 ng/mL (0.000-0.060)
[2020-07-26 23:00] VITALS: BP 130/77
== END 2020-07-26 23:18 | disposition other institution (70) ==
LOC: D.ER 13:27
PROVIDERS: Family Medicine
DX: R41.82 Altered mental status, unspecified (principal); N12 Tubulo-interstitial nephritis, not specified as acute or chronic; N39.0 Urinary tract infection, site not specified